=== PATIENT | female | born 1965 | race Caucasian/White ===

== ENCOUNTER → 2017-06-24 15:06 | Outpatient (CLI) | payer OTHER, SELFPAY ==
--- NOTE | 2017-06-24 15:15 | CT_ITS ---
STUDY: CT ABDOMEN AND PELVIS WITH CONTRAST REASON FOR EXAM: Female, 51 years old. LOW ABD PAIN WEIGHT LOSS RADIATION DOSAGE (If Supplied By Facility): CTDIvol = ( 12.18 ) mGy, DLP = ( 763.78 ) mGycm TECHNIQUE: Transaxial images were obtained from the dome of the diaphragm to the symphysis pubis with oral contrast. 100CC ml of Isovue 250 contrast was administered. Sagittal and coronal images were reconstructed. Individualized dose optimization techniques were used for this CT. COMPARISON: None. FINDINGS: The visualized lung bases are unremarkable. The visualized portions of the heart are within normal limits. 4 mm hypodensity in the right lobe of the liver. This is too small to characterize. The gallbladder is contracted. Normal spleen. Normal pancreas. Mild thickening of the left adrenal gland. Normal right kidney. Normal left kidney. Normal visualized stomach. Normal small intestine. Stool throughout the colon. The appendix is visualized and appears normal. Normal abdominal aorta. Normal inferior vena cava. Normal retroperitoneum. Normal urinary bladder. The uterus is lobulated in contour. There are multiple partially calcified masses in the uterus. This is consistent for a fibroid/ myomatous uterus. Large amount of stool in the rectal vault can suggest constipation. Normal abdominal wall. There is endplate spondylosis of the vertebral body. CT/Abdomen/Pelvis WITH Contrast IMPRESSION: Constipation. Electronically Signed: Gustabo Milton MD at 23:54 EST , Service support ,
== END ==
PROVIDERS: Family Provider Family Medicine; PCP Family Medicine; Visit Provider Internal Medicine Gastroenterology
DX: R10.9 Unspecified abdominal pain (principal); R63.4 Abnormal weight loss
CPT/HCPCS: 74177; Q9967

== ENCOUNTER → 2020-06-20 08:36 | Outpatient (CLI) | payer OTHER, SELFPAY ==
[2020-06-20 11:36] LABS: Absolute Lymphocyte Count 1.89 X10^3/uL (0.83-4.51); Absolute Neutrophil Count 4.7 X10^3/uL (2.0-7.7); Basophil# 0.07 X10^3/uL; Basophil% 0.9 % (0-1); Eosinophil# 0.32 X10^3/uL; Eosinophils% 4.3 % (0-5); Hematocrit 46.7 % (37-47); Hemoglobin 14.4 g/dL (12.0-15.0); Lymphocyte # 1.89 X10^3/ul (4.0); Lymphocyte % 25.4 % (19-41); Mean Corp Hgb Conc 30.8 g/dL (32-36); Mean Corpuscular Volume 94.2 fL (81-99); Monocyte# 0.46 X10^3/uL; Monocyte% 6.2 % (0-10); NRBC Flagged by Analyzer 0 % (0-5); Neutrophil # 4.68 X10^3/uL (2.7-7.7); Neutrophil % 62.8 % (47-70); Platelet Count 338 K/mm3 (150-450); RBC Distribution Width CV 12.8 % (11.6-14.6); RBC Distribution Width SD 44.6 fl (35.1-43.9); Red Blood Count 4.96 M/mm3 (4.2-5.4); White Blood Count 7.5 K/mm3 (4.4-11.0)
[2020-06-20 12:03] LABS: ALB/GLOB Ratio 0.8 RATIO (0.9-2.4); AST(SGOT) 27 U/L (15-37); Alanine Aminotransfer ALT/SGPT 35 U/L (13-56); Albumin, Serum 3.5 g/dL (3.2-5.0); Alkaline Phosphatase 75 U/L (45-117); Anion Gap 5 (5-15); BUN 11 mg/dL (7-18); BUN/Creat Ratio 13.7 RATIO (10-20); Calcium,Total 9.2 mg/dL (8.5-10.1); Chloride 104 mmol/L (98-107); Cholesterol 212 mg/dL (200); EST Glomerular Filtration Rate 78 mL/min (>60); Est Glom Filt Rate - Afr Amer 95 mL/min (>60); Globulin 4.2 g/dL (2.2-4.2); Glucose 99 mg/dL (74-106); High Density Lipoprotein 39 mg/dL; Potassium 4.2 mmol/L (3.5-5.1); Protein, Total 7.7 g/dL (6.4-8.2); Sodium Level 139 mmol/L (136-145); Triglycerides 78 mg/dL; Very Low Density Lipoprotein 16 mg/dL (5-40)
== END ==
PROVIDERS: PCP Family Medicine; Visit Provider Family Medicine
DX: Z00.00 Encounter for general adult medical examination without abnormal findings (principal); F17.200 Nicotine dependence, unspecified, uncomplicated
CPT/HCPCS: 36415; 80053; 80061; 85025

== ENCOUNTER → 2020-06-21 14:00 | Outpatient (CLI) | payer OTHER, SELFPAY ==
--- NOTE | 2020-06-21 14:02 | ART_ITS ---
Reason For Study: Claudication Procedure A bilateral lower extremity continuous wave Doppler with analog waveform analysis and ankle brachial indexes. Left Segmental Pressures Left brachial= 138mmHg. Left posterior tibial artery = 116mmHg. Left dorsalis pedis artery = 111mmHg. Left digit = 82 mmHg. The left dorsalis pedis waveforms are biphasic. The left posterior tibial artery waveforms are biphasic. Right Segmental Pressures Right brachial= 164mmHg. Right posterior tibial artery = 69mmHg. Right dorsalis pedis artery = 60mmHg. Right digit = 49 mmHg. The right dorsalis pedis waveforms are monophasic. The right posterior tibial artery waveforms are monophasic. Indices The right ankle brachial index by the dorsalis pedis is 0.37. The right ankle brachial index by the posterior tibial artery is 0.42. The right digital-brachial index is 0.30. The left ankle brachial index by the dorsalis pedis is 0.68. The left ankle brachial index by the posterior tibial artery is 0.71. The left digital-brachial index is 0.50. Brachial pressures taken twice. Interpretation Summary Severe arterial occlusive disease right lower extremity with abnormal ankle-brachial indices. Abnormal right dorsalis pedis and posterior tibialis monophasic Doppler waveform Abnormal right digital brachial indices Moderately severe left lower extremity arterial occlusive disease with diminished ankle-brachial indices and abnormal digital brachial indices Biphasic left posterior tibial and dorsalis pedis Doppler waveforms Ordering Physician: Sarah South Referring Physician: Sarah South Performed By: Mary Anne Chris RVT
== END ==
PROVIDERS: PCP Family Medicine; Referring Provider Family Medicine; Visit Provider Family Medicine
DX: I73.9 Peripheral vascular disease, unspecified (principal); R20.0 Anesthesia of skin; F17.200 Nicotine dependence, unspecified, uncomplicated
CPT/HCPCS: 93922

== ENCOUNTER 2021-05-19 21:12 | Emergency (ER) | payer OTHER, SELFPAY ==
[2021-05-19 21:13] VITALS: RESP 16; TEMP 35.9; BMI 33.3
[2021-05-19 21:22] VITALS: BP 195/89; PULSE 74; RESP 15; TEMP 36.5; O2SAT 98
[2021-05-19 21:32] VITALS: BP 169/74
--- NOTE | 2021-05-19 21:45 | CT_ITS ---
STUDY: CT ABDOMEN AND PELVIS WITH CONTRAST REASON FOR EXAM: Female, 55 years old. Pain RADIATION DOSAGE (If Supplied By Facility): CTDIvol = ( 12.21 ) mGy, DLP = ( 1129.76 ) mGycm TECHNIQUE: Transaxial images were obtained from the dome of the diaphragm to the symphysis pubis without oral contrast. IV 100mL Isovue-370 was administered. Sagittal and coronal images were reconstructed. Individualized dose optimization techniques were used for this CT. COMPARISON: None. FINDINGS: The visualized lung bases are unremarkable. The visualized portions of the heart are within normal limits. Small liver cysts. Otherwise unremarkable liver. Normal gallbladder and extrahepatic biliary system. Normal spleen. There is diffuse enlargement of the pancreas with ila-pancreatic edema suggesting acute pancreatitis. Normal bilateral adrenal glands. Normal right kidney. Normal left kidney. Normal visualized stomach. Normal small intestine. There are multiple colonic diverticula consistent with diverticulosis. The appendix is visualized and appears normal. Normal abdominal aorta. Normal inferior vena cava. Normal retroperitoneum. Normal urinary bladder. There is atrophy of the uterus. Normal abdominal wall. Normal osseous structures. CT/Abdomen/Pelvis W IV Cont ONLY IMPRESSION: Normal enhanced CT of the abdomen and pelvis. Electronically Signed: Micah Queen DO at 22:47 EST Tel , Service support ,
--- NOTE | 2021-05-19 21:45 | US_ITS ---
STUDY: ABDOMINAL ULTRASOUND - RIGHT UPPER QUADRANT REASON FOR VISIT: Female, 55 years old PAIN TECHNIQUE: Ultrasound evaluation of the right upper quadrant was performed with real-time and static cee-scale imaging. TECHNICAL QUALITY: Limited. Examination limited by bowel gas. COMPARISON: None. FINDINGS: Liver: The liver measures 13.3 cm. There is increased echogenicity consistent with fatty infiltration. The bile ducts are within normal limits. There is hepatic color flow. The direction of portal flow is hepatopetal. There is no demonstrated mass lesion. Small hypoechoic and nonvascular liver cysts. Gallbladder: Normal distended gallbladder. The gallbladder wall measures 2.5 mm. There is a negative sonographic Fernando''s sign. There is no pericholecystic fluid. There are multiple echogenic structures within the gallbladder, consistent with multiple gallstones. Common Bile Duct (C.B.D.): The common bile duct measures 5.4 mm. Pancreas: Limited evaluation due to overlying bowel gas Right Kidney: Normal size of the right kidney. The right kidney measures 11.5 cm. Normal renal cortex. The right cortex measures 1.2 cm. Cortical cyst measuring 9 x 9 x 8 mm There is no right hydronephrosis. US/Gallbladder IMPRESSION: Multiple gallstones without evidence of acute cholecystitis. Echogenic liver with small cysts. Right renal cyst is noted. Nonvisualized pancreas. Electronically Signed: Micah Queen DO at 23:56 EST Tel , Service support ,
--- NOTE | 2021-05-19 21:46 | ED.VIS.GI ---
HPI <Chano Crawford MD - Last Filed: 05/19/21 23:32> HPI - GI History of Present Illness Chief Complaint: Abd Pain Narrative Narrative: Patient with past medical history of DVT presents with epigastric to right upper quadrant abdominal pain, radiating down to her right lower quadrant. She states her symptoms began 45 minutes ago after eating really rich food. She states that she had pancreatitis 3 to 4 years ago, but they never found the cause why. She denies drinking alcohol. She describes sharp stabbing pain in the epigastrium to right upper quadrant. She denies any dysuria or hematuria. No problems with bowel movements. No exacerbating or alleviating factors to her abdominal pain. PFSH <Chano Crawford MD - Last Filed: 05/19/21 23:32> PFS Medical History Pancreatitis, acute Home Medications cilostazol 50 mg PO BID 05/19/21 [History Last Taken Unknown] clopidogrel [Plavix] 75 mg PO DAILY 05/19/21 [History Last Taken Unknown] Allergy/AdvReac Type Severity Reaction Status Date / Time Penicillins Allergy Swelling Verified 05/19/21 21:17 Social History Smoking Status: Smoker, status unknown tobacco type: cigarettes ROS <Chano Crawford MD - Last Filed: 05/19/21 23:32> ROS ED ROS Narrative Constitutional: No fever, no chills. HEENT: No sore throat. No neck pain. No loss of vision. No rhinorrhea. Cardiovascular: No chest pain. No palpitations. No pedal edema. Respiratory: No cough, no shortness of breath. Abdominal: Epigastric, right upper quadrant, and right lower quadrant abdominal pain. Positive nausea. No vomiting. Genitourinary: No dysuria. No hematuria. Musculoskeletal: No myalgias. No arthralgias. Neurologic: No headaches. No dizziness. No lightheadedness. Skin: No rash. No change in color. Psychiatric: No depression. No anxiety. EXAM <Chano Crawford MD - Last Filed: 05/19/21 23:32> Physical Exam Narrative Exam Narrative: Afebrile. Vital signs noted. HEENT: Normocephalic. Atraumatic. PERRL, EOMI. Neck soft and supple. No point tenderness or step off. Cardiovascular: Regular rate and rhythm. No murmurs, rubs, or gallops appreciated. Respiratory: No tachypnea. Lungs clear to auscultation bilaterally. Gastrointestinal: Abdomen soft, with tenderness to palpation in right upper quadrant, epigastrium, and right lower quadrant, with normoactive bowel sounds. No rebound or guarding, but questionable Fernando sign. Neurological: Awake. Alert. Nonfocal, nonlateralizing. Skin: No rash. Normal color. No pallor. Musculoskeletal: No pedal edema. Full range of motion extremities. Const Vital Signs: 05/19/21 21:13 05/19/21 21:22 05/19/21 21:32 Temperature 96.7 F L 97.7 F L Temperature Source Temporal Temporal Pulse Rate 74 Respiratory Rate 16 15 Blood Pressure 195/89 H 169/74 H Blood Pressure Mean 124 105 Pulse Ox 98 Oxygen Delivery Method Room Air Room Air Oxygen Flow Rate (L/min) 05/19/21 22:47 05/19/21 22:48 Temperature Temperature Source Pulse Rate Respiratory Rate Blood Pressure Blood Pressure Mean Pulse Ox 87 97 Oxygen Delivery Method Room Air Nasal Cannula Oxygen Flow Rate (L/min) 1 <Dr. Parish Sousa MD - Last Filed: 05/20/21 00:05> Physical Exam Const Vital Signs: 05/19/21 21:13 05/19/21 21:22 05/19/21 21:32 Temperature 96.7 F L 97.7 F L Temperature Source Temporal Temporal Pulse Rate 74 Respiratory Rate 16 15 Blood Pressure 195/89 H 169/74 H Blood Pressure Mean 124 105 Pulse Ox 98 Oxygen Delivery Method Room Air Room Air Oxygen Flow Rate (L/min) 05/19/21 22:47 05/19/21 22:48 Temperature Temperature Source Pulse Rate Respiratory Rate Blood Pressure Blood Pressure Mean Pulse Ox 87 97 Oxygen Delivery Method Room Air Nasal Cannula Oxygen Flow Rate (L/min) 1 MDM <Chano Crawford MD - Last Filed: 05/19/21 23:32> MDM MDM Narrative Medical decision making narrative: Comprehensive work-up was pursued. She was administered morphine and Zofran along with a bolus of normal saline intravenously. While she has pain in the right upper quadrant and epigastrium I am concerned about gallstones, but given her pain in the right lower quadrant, I am also concerned about an acute appendicitis. Baseline laboratory studies were obtained including CBC, CMP, and lipase. I will start with CT imaging of the abdomen and pelvis with IV contrast to rule out appendicitis, but additionally I do feel that a right upper quadrant ultrasound is warranted given her tenderness and her pain after eating. Her CBC is grossly unremarkable, normal white count of 8.3, hemoglobin normal at 14.0. Platelet count also normal. Her lipase is low in the 40s. Urinalysis shows no evidence of infection with 0-5 WBCs. CMP is grossly unremarkable except AST slightly elevated at 58. Upon repeat examination, she feels improved. Her abdomen remains soft. Her CT of the abdomen and pelvis shows no acute process. At this point in time, her ultrasound results are currently pending. She will be signed out to the oncoming physician. Should her ultrasound be normal, she was told to start a clear liquid diet and advance as tolerated to a no fat/low fat diet. She will follow up with her primary care physician. She and her were told that she may need an outpatient HIDA scan. I feel if she had a negative ultrasound, that she can be discharged safely home with follow-up. Her blood pressure has improved to 146 systolic. I think that it was a secondary pain reaction. Her final disposition is pending her ultrasound results. She is in stable condition. Lab Data Attestation: I reviewed the patient's lab results. Labs: Laboratory Results - last 24 hr 05/19/21 05/19/21 05/19/21 21:20 21:50 21:50 WBC 8.3 RBC 4.83 Hgb 14.0 Hct 44.2 MCV 91.5 MCH 29.0 MCHC 31.7 L RDW Std Deviation 45.5 H RDW Coeff of Aj 13.5 Plt Count 306 MPV 9.8 Immature Gran % (Auto) 0.600 Neut % (Auto) 58.0 Lymph % (Auto) 28.8 [place] % (Auto) 8.6 Eos % (Auto) 3.2 Baso % (Auto) 0.8 Absolute Neuts (auto) 4.8 Absolute Lymphs (auto) 2.40 Nucleated RBC % 0 Sodium Potassium Chloride Carbon Dioxide Anion Gap BUN Creatinine Estim Creat Clear Calc Est GFR (MDRD) Af Amer Est GFR (MDRD) Non-Af BUN/Creatinine Ratio Glucose Calcium Total Bilirubin AST ALT Alkaline Phosphatase Total Protein Albumin Globulin Albumin/Globulin Ratio Lipase Cancelled Urine Color Yellow Urine Clarity Clear Urine pH 8.0 Ur Specific [place] 1.015 Urine Protein Negative Urine Glucose (UA) Normal Urine Ketones Negative Urine Occult Blood 10 H Urine Nitrite Negative Urine Bilirubin Negative Urine Urobilinogen Normal Ur Leukocyte Esterase Negative Urine RBC 0-5 SEEN Urine WBC 0-5 SEEN Ur Squamous Epith Cells 5-10 SEEN Urine Bacteria 0 SEEN Urine Mucus 0 SEEN 05/19/21 05/19/21 22:30 22:30 WBC RBC Hgb Hct MCV MCH MCHC RDW Std Deviation RDW Coeff of Aj Plt Count MPV Immature Gran % (Auto) Neut % (Auto) Lymph % (Auto) [place] % (Auto) Eos % (Auto) Baso % (Auto) Absolute Neuts (auto) Absolute Lymphs (auto) Nucleated RBC % Sodium 139 Potassium 4.0 Chloride 105 Carbon Dioxide 29.0 Anion Gap 5 BUN 13 Creatinine 0.84 Estim Creat Clear Calc 66.49 Est GFR (MDRD) Af Amer 90 Est GFR (MDRD) Non-Af 75 BUN/Creatinine Ratio 15.6 Glucose 102 Calcium 9.0 Total Bilirubin 0.20 AST 58 H ALT 48 Alkaline Phosphatase 72 Total Protein 6.7 Albumin 3.0 L Globulin 3.7 Albumin/Globulin Ratio 0.8 L Lipase 48 L Urine Color Urine Clarity Urine pH Ur Specific [place] Urine Protein Urine Glucose (UA) Urine Ketones Urine Occult Blood Urine Nitrite Urine Bilirubin Urine Urobilinogen Ur Leukocyte Esterase Urine RBC Urine WBC Ur Squamous Epith Cells Urine Bacteria Urine Mucus Radiography Diagnostic Testing: Clinical Impression(s) from Imaging Studies Abdomen/Pelvis CT 05/19/21 21:45 IMPRESSION: Normal enhanced CT of the abdomen and pelvis. Electronically Signed: Micah Queen DO at 22:47 EST Tel , Service support , ADDENDUM: 05/19/21 [id number] Gallbladder Ultrasound 05/19/21 21:45 IMPRESSION: Multiple gallstones without evidence of acute cholecystitis. Echogenic liver with small cysts. Right renal cyst is noted. Nonvisualized pancreas. Electronically Signed: Micah Queen DO at 23:56 EST Tel , Service support , <Dr. Parish Sousa MD - Last Filed: 05/20/21 00:05> [facility] MDM Narrative Medical decision making narrative: Patient checked out to me, ultrasound returned showing multiple gallstones without radiographic signs of cholecystitis. Patient's pain is resolved, her abdomen is benign, her labs are within normal limits, and she does not have acute cholecystitis right now. Discussed foods to avoid, I would advise that she follow-up with surgery given that we see gallstones which are likely causing her symptoms. She is comfortable with this overall plan given referral information and appropriate discharge papers. Lab Data Labs: Laboratory Results - last 24 hr 05/19/21 05/19/21 05/19/21 21:20 21:50 21:50 WBC 8.3 RBC 4.83 Hgb 14.0 Hct 44.2 MCV 91.5 MCH 29.0 MCHC 31.7 L RDW Std Deviation 45.5 H RDW Coeff of Aj 13.5 Plt Count 306 MPV 9.8 Immature Gran % (Auto) 0.600 Neut % (Auto) 58.0 Lymph % (Auto) 28.8 [place] % (Auto) 8.6 Eos % (Auto) 3.2 Baso % (Auto) 0.8 Absolute Neuts (auto) 4.8 Absolute Lymphs (auto) 2.40 Nucleated RBC % 0 Sodium Potassium Chloride Carbon Dioxide Anion Gap BUN Creatinine Estim Creat Clear Calc Est GFR (MDRD) Af Amer Est GFR (MDRD) Non-Af BUN/Creatinine Ratio Glucose Calcium Total Bilirubin AST ALT Alkaline Phosphatase Total Protein Albumin Globulin Albumin/Globulin Ratio Lipase Cancelled Urine Color Yellow Urine Clarity Clear Urine pH 8.0 Ur Specific [place] 1.015 Urine Protein Negative Urine Glucose (UA) Normal Urine Ketones Negative Urine Occult Blood 10 H Urine Nitrite Negative Urine Bilirubin Negative Urine Urobilinogen Normal Ur Leukocyte Esterase Negative Urine RBC 0-5 SEEN Urine WBC 0-5 SEEN Ur Squamous Epith Cells 5-10 SEEN Urine Bacteria 0 SEEN Urine Mucus 0 SEEN 05/19/21 05/19/21 22:30 22:30 WBC RBC Hgb Hct MCV MCH MCHC RDW Std Deviation RDW Coeff of Aj Plt Count MPV Immature Gran % (Auto) Neut % (Auto) Lymph % (Auto) [place] % (Auto) Eos % (Auto) Baso % (Auto) Absolute Neuts (auto) Absolute Lymphs (auto) Nucleated RBC % Sodium 139 Potassium 4.0 Chloride 105 Carbon Dioxide 29.0 Anion Gap 5 BUN 13 Creatinine 0.84 Estim Creat Clear Calc 66.49 Est GFR (MDRD) Af Amer 90 Est GFR (MDRD) Non-Af 75 BUN/Creatinine Ratio 15.6 Glucose 102 Calcium 9.0 Total Bilirubin 0.20 AST 58 H ALT 48 Alkaline Phosphatase 72 Total Protein 6.7 Albumin 3.0 L Globulin 3.7 Albumin/Globulin Ratio 0.8 L Lipase 48 L Urine Color Urine Clarity Urine pH Ur Specific [place] Urine Protein Urine Glucose (UA) Urine Ketones Urine Occult Blood Urine Nitrite Urine Bilirubin Urine Urobilinogen Ur Leukocyte Esterase Urine RBC Urine WBC Ur Squamous Epith Cells Urine Bacteria Urine Mucus Radiography Diagnostic Testing: Clinical Impression(s) from Imaging Studies Abdomen/Pelvis CT 05/19/21 21:45 IMPRESSION: Normal enhanced CT of the abdomen and pelvis. Electronically Signed: Micah Queen DO at 22:47 EST Tel , Service support , ADDENDUM: 05/19/21 [id number] Gallbladder Ultrasound 05/19/21 21:45 IMPRESSION: Multiple gallstones without evidence of acute cholecystitis. Echogenic liver with small cysts. Right renal cyst is noted. Nonvisualized pancreas. Electronically Signed: Micah Queen DO at 23:56 EST Tel , Service support , Discharge Plan Triage Chief Complaint: Abd Pain ED Provider: Chano Crawford Dx/Rx/DC Orders Clinical Impression: Biliary colic, Cholelithiasis Instructions: ED Gallstones with Biliary Colic Prescriptions: No Action cilostazol 50 mg Tablet 50 mg PO BID RF: 0 clopidogrel [Plavix] 75 mg Tablet 75 mg PO DAILY RF: 0 Primary Care Provider: Sarah South Referrals: Jose Luis Adler MD [STAFF PHYSICIAN] - (Call tomorrow for appointment to be seen as soon as an appointment is available) Sarah South MD [Primary Care Provider] - 05/20/21 Disposition Disposition: Home, Self Care
[2021-05-19] MEDS: 0.9% Normal Saline 1,000 ML 1000 ML IV (21:50)
[2021-05-19] MEDS: Ondansetron 4 MG/2 ML Vial IV (21:55)
[2021-05-19] MEDS: Morphine 4 MG/ML Syringe IV (21:55)
[2021-05-19 21:56] LABS: Absolute Neutrophil Count 4.8 X10^3/uL (2.0-7.7); Basophil# 0.07 X10^3/uL; Basophil% 0.8 % (0-1); Eosinophil# 0.27 X10^3/uL; Eosinophils% 3.2 % (0-5); Hematocrit 44.2 % (37-47); Lymphocyte % 28.8 % (19-41); Mean Corp Hgb Conc 31.7 g/dL (32-36); Mean Corpuscular Volume 91.5 fL (81-99); Mean Platelet Vol. 9.8 fl (6.2-12.0); Monocyte# 0.72 X10^3/uL; Monocyte% 8.6 % (0-10); NRBC Flagged by Analyzer 0 % (0-5); Neutrophil # 4.83 X10^3/uL (2.7-7.7); Platelet Count 306 K/mm3 (150-450); RBC Distribution Width CV 13.5 % (11.6-14.6); RBC Distribution Width SD 45.5 fl (35.1-43.9); Red Blood Count 4.83 M/mm3 (4.2-5.4); White Blood Count 8.3 K/mm3 (4.4-11.0)
[2021-05-19 22:00] LABS: Bacteria 0 SEEN /hpf (None Seen); Mucous, Urine 0 SEEN /hpf (<or=2+)
[2021-05-19 22:01] LABS: Color, Urine Yellow (Yellow); Glucose, Dipstick Normal (Normal); Ketone-Dipstick Negative (Negative); Leukocyte Esterase-Dipstick Negative /ul (Negative); Nitrite-Dipstick Negative (Negative); Occult Blood-Urine 10 /ul (Negative); Protein-Dipstick Negative (Negative); Specific Gravity, Urine 1.015 (1.002-1.030); Urine Bilirubin Dipstick Negative (Negative); Urine Clarity Clear (Clear); Urine Urobilinogen Normal (Normal)
[2021-05-19 22:11] LABS: Red Blood Cells-Urine 0-5 SEEN /hpf (0-5); Squamous Epithelial Cells - UA 5-10 SEEN /hpf (5-10); White Blood Cells 0-5 SEEN /hpf (0-5)
[2021-05-19 22:47] VITALS: O2SAT 87
[2021-05-19 22:48] VITALS: O2SAT 97
[2021-05-19 22:53] LABS: Lipase 48 U/L (73-393)
[2021-05-19 23:07] LABS: ALB/GLOB Ratio 0.8 RATIO (0.9-2.4); AST(SGOT) 58 U/L (15-37); Alanine Aminotransfer ALT/SGPT 48 U/L (13-56); Alkaline Phosphatase 72 U/L (45-117); Anion Gap 5 (5-15); BUN 13 mg/dL (7-18); BUN/Creat Ratio 15.6 RATIO (10-20); Chloride 105 mmol/L (98-107); Creatinine, Serum 0.84 mg/dL (0.55-1.02); EST Glomerular Filtration Rate 75 mL/min (>60); Est Glom Filt Rate - Afr Amer 90 mL/min (>60); Estimated Creatinine Clearance 66.49 ml/min; Globulin 3.7 g/dL (2.2-4.2); Glucose 102 mg/dL (74-106); Protein, Total 6.7 g/dL (6.4-8.2); Sodium Level 139 mmol/L (136-145)
[2021-05-20 00:02] VITALS: BP 125/62; PULSE 75; RESP 17; O2SAT 95
== END 2021-05-20 00:07 | disposition home or self-care (01) ==
PROVIDERS: Emergency Provider Emergency Medicine; PCP Family Medicine
DX: K80.70 Calculus of gallbladder and bile duct without cholecystitis without obstruction (principal); F17.210 Nicotine dependence, cigarettes, uncomplicated; Z79.02 Long term (current) use of antithrombotics/antiplatelets; Z79.899 Other long term (current) drug therapy; Z87.19 Personal history of other diseases of the digestive system; Z86.718 Personal history of other venous thrombosis and embolism
CPT/HCPCS: 74177; 76705; 80053; 81001; 83690; 85025; 96361; 96374; 96375; 99285; J7030; Q9967; A4216; J2405

== ENCOUNTER 2021-05-31 08:01 | Outpatient (CLI) | payer OTHER, SELFPAY ==
--- NOTE | 2021-05-31 08:00 | ART_ITS ---
Reason For Study: Atherosclerosis Procedure A bilateral lower extremity continuous wave Doppler with analog waveform analysis and ankle brachial indexes. Left Segmental Pressures Left brachial= 137mmHg. Left posterior tibial artery = 132mmHg. Left dorsalis pedis artery = 135mmHg. The left dorsalis pedis waveforms are biphasic. The left posterior tibial artery waveforms are biphasic. Right Segmental Pressures Right brachial= 139mmHg. Right posterior tibial artery = 79mmHg. Right dorsalis pedis artery = 74mmHg. The right dorsalis pedis waveforms are monophasic. The right posterior tibial artery waveforms are monophasic. Indices The right ankle brachial index by the dorsalis pedis is .53. The right ankle brachial index by the posterior tibial artery is .57. The left ankle brachial index by the posterior tibial artery is .95. The left ankle brachial index by the dorsalis pedis is .97. VL/Ankle Brachial Index Interpretation Summary Right lower extremity with moderate occlusive disease at rest with an STEFANO 0.57 and monophasic flow noted. Left lower extremity with biphasic flow noted and an STEFANO of 0.97. Ordering Physician: MD Fernando Coulter Referring Physician: Fernando Coulter Performed By: Aleah Jordan RDCS, RVT
--- NOTE | 2021-05-31 08:06 | AAVD_ITS ---
Reason For Study: ATHEROSCLEROSIS Aorta Measurements Aorta Doppler Measurements Proximal aorta measures1.49 X 1.49cm. in cross- Peak systolic flow velocities within the proximal sectional axis. aorta measure 120.5 cm/sec. Proximal aorta measures1.48cm. in longitudinal Peak systolic flow velocities within the mid aorta axis. measure 102.9 cm/sec. Mid aorta measures1.44 X 1.43cm. in cross- Peak systolic flow velocities within the distal sectional axis. aorta measure 111.7 cm/sec. Mid aorta measures1.44cm. in longitudinal axis. Distal aorta measures1.57 X 1.55cm. in cross- sectional axis. Distal aorta measures1.56cm. in longitudinal axis. Left Iliac Artery Left iliac artery measures 1.15 X 1.15 cm. in the longitudinal axis. Left iliac artery measures 1.14 cm. in the cross-sectional axis. Peak systolic velocity in the left iliac artery measures 151.7 cm/sec. Right Iliac Artery Right iliac artery measures 1.07 X 1.07 cm. in the longitudinal axis. Right iliac artery measures 1.06 cm. in the cross-sectional axis. Peak systolic velocity in the right iliac artery measures 133.6 cm/sec. Procedure Aorta IVC Iliac vasculature or bypass grafts [id number]. Exam performed in department. VL/Abd Aortic/IVC Duplex scan Interpretation Summary No evidence of aortic iliac aneurysm or stenosis. Ordering Physician: Fernando Coulter Referring Physician: BATSHEVA ODEN Performed By: Aleah Jordan, NALLELY, RVT
== END 2021-05-31 23:59 | disposition short-term general hospital (02) ==
LOC: CVS 08:02
PROVIDERS: PCP Family Medicine; Referring Provider Surgery Vascular Surgery; Visit Provider Surgery Vascular Surgery
DX: I70.213 Atherosclerosis of native arteries of extremities with intermittent claudication, bilateral legs (principal); I77.1 Stricture of artery; Z48.812 Encounter for surgical aftercare following surgery on the circulatory system
CPT/HCPCS: 93922; 93978

== ENCOUNTER 2021-07-03 08:19 | Outpatient (CLI) | payer OTHER, SELFPAY ==
--- NOTE | 2021-07-03 08:25 | RAD_ITS ---
STUDY: X-RAY CHEST REASON FOR EXAM: Female, 55 years old. covid TECHNIQUE: PA and lateral views of the chest. COMPARISON: Comparison is made with prior study 12/25/2015. FINDINGS: There is elevation of the right hemidiaphragm. Stable scattered calcified granulomas. Hyperinflation. No acute abnormality is seen. There is no demonstrated pleural abnormality. Normal size heart. Normal mediastinum and bárbara. Normal visualized pulmonary arteries. There is atherosclerotic tortuosity of the aortic arch and descending thoracic aorta. There are diffuse degenerative changes of the visualized thoracic spine. Normal visualized ribs, clavicles, and shoulders. There is no demonstrated abnormality of the visualized soft tissue structures of the upper abdomen. RAD/Chest PA and Lateral IMPRESSION: No acute abnormality is seen. Electronically Signed: Mark Bhat MD at 9:11 EST ,
== END 2021-07-03 23:59 | disposition home or self-care (01) ==
LOC: RAD 08:20
PROVIDERS: PCP Family Medicine; Referring Provider Surgery; Visit Provider Surgery
DX: U07.1 COVID-19 (principal)
CPT/HCPCS: 71046

== ENCOUNTER 2021-07-05 10:32 | Day surgery (SDC) | payer OTHER, SELFPAY ==
--- NOTE | 2021-06-13 09:20 | EKG12_ITS ---
Test Reason : PREOP Blood Pressure : / mmHG Vent. Rate : 066 BPM Atrial Rate : 066 BPM P-R Int : 156 ms QRS Dur : 090 ms QT Int : 374 ms P-R-T Axes : 058 -39 049 degrees QTc Int : 392 ms Normal sinus rhythm Left axis deviation Consider Left ventricular hypertrophy Abnormal ECG Confirmed by JOHN CLEMENTS, ALYSSA ([id number]), medical transcription editor CORI MCHUGH ([id number]) on 06/14/2021 9:09:27 AM Referred By: Jose Luis Adler Confirmed By:ALYSSA LOPEZ MD
[2021-06-17 07:52] VITALS: BP 135/65; PULSE 71; RESP 20; TEMP 36.3; O2SAT 93; BMI 32.3
[2021-06-17] MEDS: Lactated Ringers 1,000 ML 15 ML IV (08:13)
--- NOTE | 2021-06-17 08:17 | PN_ITS ---
Progress Note Patient was here for surgery and had rapid Covid test this morning and tested positive for Covid. This is supported by the fact that her oxygen saturation was only 90% on arrival. I will cancel her surgery and plan to delay 2 to 3 weeks. Jose Luis Adler MD Pager: [facility] [address] [place] [address], [address] [place] [address] Office:
--- NOTE | 2021-06-17 08:17 | PCM.PN.BLA ---
Progress Note Patient was here for surgery and had rapid Covid test this morning and tested positive for Covid. This is supported by the fact that her oxygen saturation was only 90% on arrival. I will cancel her surgery and plan to delay 2 to 3 weeks. Jose Luis Adler MD Pager: [facility] [address] [place] [address], [address] [place] [address] Office:
--- NOTE | 2021-06-17 08:20 | SUR.PREOP ---
lab called with positive covid rapid test- dr ian jasso and informed- case cancelled he will talk with pt
[2021-07-05] VITALS (13 sets, daily range): BP systolic 103–188; BP diastolic 49–90; PULSE 71–98; RESP 14–18; TEMP 36.3–36.9; O2SAT 92–97; BMI 31.5
[2021-07-05] MEDS: Lactated Ringers 1,000 ML 15 ML IV (11:05)
--- NOTE | 2021-07-05 11:27 | HP.PCM_ITS ---
History and Physical Date of Admission: 07/05/21 Intake Vital Signs 05/22/21 14:24 Height 5 ft 5 in Weight: 199 lb BMI 33.1 BP 122/72 H Blood Pressure Location Rt brachial Position Sitting Respiration 16 Intake Visit Reasons: GALLSTONES Chief Complaint: gallstones Junior Network Administrator Required: No Is patient in pain?: No Allergies Penicillins Allergy (Verified 05/22/21 14:25) Swelling Medications cilostazol 50 mg PO BID 05/19/21 [History Confirmed 05/22/21] clopidogrel [Plavix] 75 mg PO DAILY 05/19/21 [History Confirmed 05/22/21] [facility] Medical History (Updated 05/22/21 @ 14:[address] Jose Luis Adler MD) Pancreatitis, acute PVD (peripheral vascular disease) Surgical History H/O tubal ligation Social History Smoking Status: Current every day smoker alcohol intake: current HPI HPI HPI: MICHELLE CHU, is a 55 F who presents to the office today for right upper quadrant pain. Patient was in the emergency room recently with right upper quadrant pain was found to have gallstones. There was no sign of acute cholecystitis. Patient reports yesterday she had a roll with butter on it and that caused right upper quadrant pain as well. Patient is not having any fevers or chills. The patient has not had any issues in the past like this before. Patient does report that she had pancreatitis about 6 years ago. ROS General General: Yes weight change and fatigue; No appetite, colon cancer, breast cancer or weakness HEENT HEENT: No difficulty swallowing, eye injury, eye surgery, swollen glands or hoarseness Endo Endocrine: No thyroid disease, diabetes mellitus, thyroid cancer, Hair loss, heat intolerance or cold intolerance Skin Skin: No rash or changing moles Breast Breast: No left breast lump, right breast lump, nipple discharge, breast pain, abnormal mammogram, abnormal US or breast enlargement Musc Musculoskeletal: No back problems, arthritis, rheumatoid arthritis, gout or joint pain Cardio Cardiovascular: No murmur, pacemaker, heart disease, atrial fibrillation, high blood pressure, heart attack, heart stent, palpitations, shortness of breat with exertion or chest pain Psych Psychiatric: No depression, anxiety or hearing voices Resp Respiratory: No shortness of breath, No sleep apnea, Yes cough, No COPD, No asthma, No emphysema and No wheezing Gastro Gastrointestinal: Yes abdominal pain, No nausea or vomiting, No diarrhea, No constipation, No blood in stool, Yes acid reflux, No hemorrhoids, No ulcers, Yes gallbladder problem and No black,tarry stools David Hematologic: Yes blood thinners, No blood disorders, No bleeding, No anemia and No blood clots Neuro Neurologic: No system reviewed and no additional complaints, except as documented, No as per HPI, No abnormal gait, No abnormal hearing, No abnormal movements, No abnormal speech, No behavioral changes, No burning sensations, No confusion, No convulsions, No disequilibrium, No dizziness, No localized weakness, No frequent falls, No headache(s), No lack of coordination, No loss of vision, No memory loss, No numbness, No other visual disturbances, No radicular pain, No restless legs, No sensory deficit, No syncope, No tingling, No tremor(s), No weakness and No other Exam Const General: cooperative Orientation: alert and oriented x3 HENMT Head: normal to inspection Neck Neck: normal visual inspection and full ROM Chest Chest palpation & inspection: normal inspection of the chest Resp Effort & Inspection: normal respiratory effort Auscultation: clear to auscultation bilaterally Cardio Rate: regular rate Rhythm: regular rhythm GI Inspection: non-distended Palpation: soft and nontender Skin General: no rashes or lesions noted Neuro General: patient alert and patient oriented x3 Extrem General: full ROM Psych Appearance: grossly normal Mental Status: mental status grossly normal Assessment and Plan Assessment and Plan (1) Biliary colic: Status: Acute (2) Cholelithiasis: Status: Acute Qualifiers: Cholelithiasis location: gallbladder Cholecystitis presence: without cholecystitis Biliary obstruction: without biliary obstruction Qualified Code(s): K80.20 - Calculus of gallbladder without cholecystitis without obstruction Plan - Dr. Jose Luis Adler MD: The patient has several gallstones within her gallbladder causing biliary colic. I recommend the patient has laparoscopic cholecystectomy however she has severe PVD and is on 2 blood thinners. Patient is meeting with her vascular surgeon next week to discuss further studies and possible interventions. I discussed laparoscopic cholecystectomy with her in detail. The patient will be happy to proceed when able. I would like the patient asked her vascular surgeon when she may be able to stop her blood thinners. If she is able to come off of her blood thinners for 5 days I will schedule her for laparoscopic cholecystectomy. Jose Luis Adler MD Pager: [facility] [address] [place] [address], [address] [place] [phone] Office: Patient has recovered from Covid. Plan to proceed with laparoscopic cholecystectomy today.
--- NOTE | 2021-07-05 11:45 | RAD_ITS ---
STUDY: INTRAOPERATIVE CHOLANGIOGRAM. REASON FOR EXAM: Female, 55 years old. RUQ pain -- LAP PARKER WITH IOC FLUOROSCOPY TIME (if supplied): ( 17 seconds ) minutes/seconds. A cine loop of 113 images was obtained. TECHNIQUE: An intraoperative cholangiogram was performed by the surgeon. Imaging was submitted. COMPARISON: None. FINDINGS: The intra and extrahepatic biliary ducts are unremarkable. No intraluminal filling defect is seen. There is free flow of contrast into the duodenum. RAD/Cholangiogram/ O R,Initial IMPRESSION: Unremarkable intraoperative cholangiogram. Electronically Signed: Mark Bhat MD at 10:03 [facility] ,
--- NOTE | 2021-07-05 12:10 | GALL_PTH ---
PATIENT: MICHELLE CHU LOC: [facility] U#:[id number] AGE/SX: 55/F ROOM: RE07/05/[address]: Dr. Jose Luis Adler MD : [id number] BED: DIS: 07/05/2021 SPEC #: [id number] RECD: 07/05/21 13:09 STATUS: GABRIELA WANG #: [id number] ROYER: 07/05/21 12:[address]: Jose Luis Adler DEPT: SURGICAL PATHOLOGY RECD BY: Maurilio Daniels ENTERED: 07/05/21 13:26 SP TYPE: JARRED ARAGON DR: Dr. Sarah South MD Tissues: Gallbladder, NOS Procedures: Surgery Specimen Level III HEADER OPERATION: Laparoscopic cholecystectomy with IOC PRE-OP DIAGNOSIS: Biliary colic, cholelithiasis TISSUE SUBMITTED: Gallbladder MICROSCOPIC DIAGNOSIS Gallbladder, cholecystectomy: Chronic cholecystitis and cholelithiasis. SJ:ruddy 07/08/2021 MICROSCOPIC DESCRIPTION Slides are reviewed. GROSS DESCRIPTION Received is one container labeled with the patient's name and designated gallbladder. The specimen consists of a gallbladder measuring 9.5 cm in length and up to 3.5 cm in diameter. The external surface is pink-jones, smooth and glistening for the most part. Focally it is granular, hemorrhagic and contains cautery artifact. The gallbladder contains green-yellow mucoid bile and multiple mulberry stones and stone fragments measuring in aggregate 5 x 4 x 1 cm and 0.1 to 1 cm in greatest dimension. The mucosa is bile-stained and without any mass lesions. The gallbladder wall measures up to 0.2 cm in thickness. Client Renewal Specialist sections from the gallbladder and the cystic duct are submitted in one cassette. / MARIAN:ruddy 07/05/2021 TC:3 CPT: 04898
[2021-07-05] MEDS: Bupivacaine Mpf 0.5% 30 ML VIAL (12:21)
--- NOTE | 2021-07-05 12:37 | PCM.OPRPT ---
Problems Associated Problem List Diagnoses (1) Biliary colic: (2) Cholelithiasis: Report of Operation Date of Procedure: 07/05/21 Pre-Operative Diagnosis: Cholelithiasis and biliary colic Post-Operative Diagnosis: Same Surgery/Procedure Performed:: Laparoscopic cholecystectomy with cholangiogram Specimen's removed: Gallbladder Description of Procedure: After obtaining informed consent patient was brought back to the operating room. General anesthesia was induced. The abdomen was prepped and draped in usual sterile fashion. A small midline incision was made superior to the umbilicus and deepened to the level of fascia. The fascia was elevated and incised. Next the peritoneum was elevated and incised in the same fashion. Finger sweep was performed and the Miguel trocar was placed into the abdomen. The balloon was inflated. The abdomen was inflated to 15 mmHg. Next a camera was introduced into the abdomen and the abdomen was inspected. Next under direct visualization three 5-mm ports were placed one subxiphoid and 2 subcostal. Next the gallbladder was elevated and retracted toward the right shoulder. The peritoneum was stripped from the gallbladder. The infundibulum was located and retracted laterally. Next the triangle of Calot was dissected and the cystic duct and cystic artery were identified. Cholangiograms were performed. The Dempsey clamp was used to clamp across the infundibulum and the catheter needle was inserted into the gallbladder. Under fluoroscopy contrast was instilled into the gallbladder and the common duct, cystic duct as well as proximal hepatic ducts were identified. There was good filling of the duodenum. There were no filling defects noted in the common bile duct. The clamp was removed as well as the needle and the infundibulum was grasped once more. Three hemolock clips were placed across the cystic duct. The cystic duct was then divided leaving 2 clips on the stump. The cystic artery was clipped and divided in the same fashion. The hook cautery was then used to take the gallbladder off of the gallbladder bed. Hemostasis was obtained. Gallbladder fossa was irrigated and no active bleeding or bile leakage was noted. Next the camera was introduced in the subxiphoid port. An Endopouch bag was placed through the umbilical port and the gallbladder was placed into it. The gallbladder was then removed through the umbilical incision. The camera was then reinserted through the umbilical port. The gallbladder fossa was inspected once more and noted to be hemostatic with no leaking bile. The abdomen was suctioned dry. The 5 mm ports were removed under direct visualization. The umbilical port was then removed and the air was removed from the abdomen. Next using an 0 Vicryl suture the umbilical fascia was closed in a [id number] fashion. The umbilical port site was irrigated local anesthetic was administered to all the incisions. All the incisions were closed with interrupted subcuticular 4-0 Monocryl sutures followed by Steri-Strips and dressings. The patient was awoken and taken to PACU in stable condition. Admit VTE Documentation VTE Mechan Device Prophylaxis: SCD's
--- NOTE | 2021-07-05 12:39 | EX.PCM.DISCH ---
Discharge Instructions Procedure Gallbladder Diet Discharge Diet: Light diet - advance as tolerated Activity Discharge Activity: May Not Drive (for 2-3 days or while taking narcotic pain medications.) and - (Do not drive, work heavy equipment or sign legal documents for 24 hours.) May shower in (days): 1 Lifting Restrictions: 20 lbs for 2 weeks Additional Activity Instructions:: Pain medication may cause nausea. You should typically eat light foods as you take your pain medications. Pain medication may also cause constipation. If this is a problem for you, please discuss with your doctor. Dressing / Incision Call your doctor if your incision/area has: Continuous Slow Oozing, Sudden Increased Bleeding, Increased Pain/ Swelling, Increased Redness and Foul Smelling Discharge Call your doctor if you observe: Fever of 101 or Higher Suture Line Care: Avoid Pulling/Pushing and Avoid Pinching/Bending Remove Dressing in: 2 days (Remove Steri-Strips in 7 to 10 days) Cleanse incision/area with: Soap & Water Additional Dressing/Incision Instructions:: Leave operative bandaids on for 2 days. When you remove dressing, remove Steri-Strips in 7 to 10 days. Resume Plavix and Pletal tomorrow Follow Up Care Please Follow Up With: Jose Luis Adler MD When: Please call to schedule 2 week follow up appointment. [phone] Test Results: Test results from this visit will be discussed in further detail at your follow-up appointment, if applicable. Discharge Plan Admission Attending Provider: Jose Luis Adler Primary Care Provider: Sarah South Discharge Orders/Prescriptions Prescriptions: New oxycodone-acetaminophen [Percocet] 5-325 mg tablet 1 tab PO Q4H PRN (Reason: pain) 5 Days Qty: 20 RF: 0 No Action cilostazol 50 mg Tablet 50 mg PO BID RF: 0 clopidogrel [Plavix] 75 mg Tablet 75 mg PO DAILY RF: 0 Pepcid Complete 10-800-165 mg Tablet,Chewable 1 tab PO QHS RF: 0 Other Ambulatory Orders: 12 Lead EKG (Routine) Timeframe: [id number] Location: None Selected Ordered By: Dr. Rajiv Sims Referrals / Follow Up: Sarah South MD [Primary Care Provider] - Disposition Disposition (needs filled in before D/C Order can be placed): Home, Self Care
== END 2021-07-05 23:59 | disposition home or self-care (01) ==
LOC: SDC 10:33 → AC 10:33
PROVIDERS: PCP Family Medicine; Referring Provider Surgery; Visit Provider Surgery
PROC: (CPT 47610; principal; 2021-07-05 11:50)
DX: K80.64 Calculus of gallbladder and bile duct with chronic cholecystitis without obstruction (principal); I73.9 Peripheral vascular disease, unspecified; K21.9 Gastro-esophageal reflux disease without esophagitis; F17.200 Nicotine dependence, unspecified, uncomplicated; Z79.02 Long term (current) use of antithrombotics/antiplatelets; Z79.899 Other long term (current) drug therapy; Z53.8 Procedure and treatment not carried out for other reasons
CPT/HCPCS: 47563 ×2; 00790; 74300; 76000; 87426; 88304; 93005; J7120; J0330; J2405

== ENCOUNTER 2021-07-18 17:00 | Emergency (ER) | payer OTHER, SELFPAY ==
[2021-07-18 17:01] VITALS: BP 216/96; PULSE 91; RESP 14; TEMP 36.8; O2SAT 98; BMI 31.5
--- NOTE | 2021-07-18 17:36 | EDS_ITS ---
HPI History of Present Illness Chief Complaint: Chest Pain Informant: patient Onset/Context/Timing Onset: Hours (1.5) Activity at onset: sudden and onset Timing: Intermittent (one episode) and Lasts (about an hour) Quality: Positive for Aching and Pressure Location: - (epigastric and RUQ, radiating up into substernal chest) Current Severity: Gone Maximum Severity: Severe Worsened By: Nothing Relieved By: Nothing Associated Symptoms: Positive for Diaphoresis, Lightheadedness and - (tingling both arms/hands); Negative for Nausea, Vomiting, Dyspnea, Cough, Fever and Palpitations Narrative Narrative: Patient states about 2 hours prior to the onset of pain, she had fast food hamburger for lunch, and then ate a small package of M&M candies just prior to the onset of terrible upper abdominal/lower chest discomfort. She states these were the exact same episodic symptoms she was having prior to having her cholecystectomy on 07/05/2021. She was diagnosed as having gallstones and biliary colic. She did have the chest discomfort occasionally when she was having those episodes, but she did not necessarily have the sweating and tingling in her hands that she did today. At this time the discomfort is gone and her symptoms are all resolved as well. When she initially arrived here to the hospital to the waiting room, her blood pressure was 216/96 and she was having the severe discomfort, but it has since resolved on its own and now her blood pressure is 142 during my exam. Patient states she is on clopidogrel for peripheral arterial disease in her legs. She does not take aspirin or any anticoagulants and has no history of DVT or PE. She denies any pleuritic symptoms today. [facility] Medical History (Updated 07/18/21 @ 21:[address] Parish Sousa MD) Acute cholecystitis Cholelithiasis COVID Gastric reflux History of edema History of pain when walking Pancreatitis, acute PVD (peripheral vascular disease) Smoker Wears partial dentures Home Medications cilostazol 50 mg PO BID 05/19/21 [History Last Taken Unknown] clopidogrel [Plavix] 75 mg PO DAILY 05/19/21 [History Last Taken 06/30/21] famotidine-Ca carb-mag hydrox [Pepcid Complete] 1 tab PO QHS 06/12/21 [History Last Taken Unknown] oxycodone-acetaminophen [Percocet] 1 tab PO Q4H PRN 5 Days #20 tab 07/05/21 [Rx Last Taken Unknown] pantoprazole 40 mg PO DAILY #30 tab 07/18/21 [Rx Last Taken Unknown] Allergy/AdvReac Type Severity Reaction Status Date / Time Penicillins Allergy Swelling Verified 07/18/21 17:04 Surgical History H/O tubal ligation History of laparoscopic cholecystectomy Hx of vascular surgery Social History Smoking Status: Current every day smoker tobacco type: cigarettes alcohol intake: current ROS ROS ED Constitutional Constitutional ED: Denies chills or fever(s) Eyes Eyes: Denies change in vision or diplopia ENT ENT ED: Denies rhinorrhea or sore throat Cardiovascular Cardiovascular: Reports as per HPI and chest pain; Denies dyspnea or palpitations Respiratory/Chest Respiratory/Chest: Denies cough or dyspnea Gastrointestinal Gastrointestinal: Reports as per HPI and abdominal pain; Denies diarrhea, nausea or vomiting Genitourinary Genitourinary ED: Denies dysuria or hematuria Musculoskeletal Musculoskeletal: Denies back pain or neck pain Integumentary Denies abscess or rash Neurologic Neurologic: Reports as per HPI and paresthesias; Denies headache(s) or weakness Psychiatric Psychiatric: Denies anxiety or suicidal thoughts EXAM Physical Exam Const Vital Signs: 07/18/21 17:00 07/18/21 17:01 07/18/21 17:36 Temperature 98.3 F Temperature Source Temporal Pulse Rate 91 Respiratory Rate 14 Respiratory Effort Normal Non-Labored Blood Pressure 216/96 H Blood Pressure Mean 136 Pulse Ox 98 Oxygen Delivery Method Room Air Room Air 07/18/21 18:08 07/18/21 19:04 07/18/21 20:27 Temperature Temperature Source Pulse Rate 88 83 85 Respiratory Rate 30 H 19 H 22 H Respiratory Effort Blood Pressure 131/69 H 143/64 H 159/67 H Blood Pressure Mean 89 90 97 Pulse Ox 95 99 98 Oxygen Delivery Method Room Air Room Air Room Air Positive well nourished and well developed General Appearance ED: well developed and NAD HEENT Reports moist mucous membranes normocephalic and atraumatic Eyes PERRL and EOMs intact bilaterally Neck full ROM and supple Resp normal respiratory effort and clear to auscultation bilaterally Cardio regular rate, regular rhythm and no murmurs GI non-tender and non-distended Auscultation: normoactive bowel sounds Palpation: soft Back/Spine no CVA tenderness General Back: other FROM Extremity normal to inspection General Extremety ED: Negative for edema, pulses abnormal or tenderness General Extremity: Negative for edema or pulses abnormal Neuro oriented x3, CN's II-XII intact bilaterally, no focal motor deficits, no sensory deficits noted and gait normal Sensorium / Orientation: awake and alert Motor Exam: strength 5/5 throughout Skin no rashes or lesions noted and no wounds Heart Score History: Moderately Suspicious ECG: Normal Age: >45 - <65 years Risk Factors: 1 or 2 Risk Factors Troponin: </= Normal Limit Score: 3 MDM MDM MDM Narrative Medical decision making narrative: Initial work-up negative including a troponin of 12, this was repeated 2 hours later and the reading is 12 on that one as well for a delta of 0. The rest of her work-up is negative, her liver enzymes and lipase are within normal limits, and she did not have recurrence of her symptoms. Given the negative troponin twice after an hour worth of intense pain I think this is less likely to be cardiac. Certainly possibility that this was GI or biliary in nature, but I do not think she needs emergent imaging given that all of her labs are normal and she has had no recurrence of her symptoms making choledocholithiasis much less likely. At this time I recommend a PPI daily and following up, returning for intractable recurrent symptoms and she is comfortable with that plan. Lab Data Attestation: I reviewed the patient's lab results. Labs: Laboratory Results - last 24 hr 07/18/21 07/18/21 07/18/21 17:20 17:20 19:40 WBC 10.4 RBC 5.08 Hgb 14.3 Hct 45.8 MCV 90.2 MCH 28.1 MCHC 31.2 L RDW Std Deviation 44.7 H RDW Coeff of Aj 13.4 Plt Count 477 H MPV 9.2 Immature Gran % (Auto) 0.300 Neut % (Auto) 67.9 Lymph % (Auto) 21.8 [place] % (Auto) 6.0 Eos % (Auto) 3.3 Baso % (Auto) 0.7 Absolute Neuts (auto) 7.1 Absolute Lymphs (auto) 2.27 Nucleated RBC % 0 Sodium 137 Potassium 3.8 Chloride 103 Carbon Dioxide 29.0 Anion Gap 5 BUN 12 Creatinine 0.79 Estim Creat Clear Calc 70.70 Est GFR (MDRD) Af Amer 97 Est GFR (MDRD) Non-Af 80 BUN/Creatinine Ratio 15.2 Glucose 112 H Calcium 9.7 Total Bilirubin 0.30 AST 57 H ALT 53 Alkaline Phosphatase 108 Troponin I High Sens 12 12 Total Protein 8.2 Albumin 3.4 Globulin 4.8 H Albumin/Globulin Ratio 0.7 L Lipase 49 L Radiography Diagnostic Testing: Clinical Impression(s) from Imaging Studies Chest X-Ray 07/18/21 18:09 IMPRESSION: No acute cardiopulmonary disease or major interval change. Electronically Signed: Brandt Francis DO at 18:58 EST Reading Location ID and State: [address] [place] [address] Tel [phone], Service support , EKG Initial EKG: Attestation: I personally reviewed and interpreted this EKG as follows: Interpretation: Sinus Rhythm and No Acute Injury Pattern Comments: LAD Prior EKG tracings: available for review (07/05/21) Prior: Unchanged Discharge Plan Triage Chief Complaint: Chest Pain ED Provider: Parish Sousa Dx/Rx/DC Orders Clinical Impression: Acute upper abdominal pain, Chest pain of uncertain etiology Instructions: Abdominal Pain Prescriptions: New pantoprazole 40 mg tablet,delayed release (DR/EC) 40 mg PO DAILY Qty: 30 RF: 0 No Action cilostazol 50 mg Tablet 50 mg PO BID RF: 0 clopidogrel [Plavix] 75 mg Tablet 75 mg PO DAILY RF: 0 Pepcid Complete 10-800-165 mg Tablet,Chewable 1 tab PO QHS RF: 0 oxycodone-acetaminophen [Percocet] 5-325 mg tablet 1 tab PO Q4H PRN (Reason: pain) 5 Days Qty: 20 RF: 0 Primary Care Provider: Sarah South Referrals: Sarah South MD [Primary Care Provider] - 3-5 Days if not improving Disposition Disposition: Home, Self Care
--- NOTE | 2021-07-18 17:36 | EKG12_ITS ---
Test Reason : CP Blood Pressure : / mmHG Vent. Rate : 082 BPM Atrial Rate : 082 BPM P-R Int : 164 ms QRS Dur : 094 ms QT Int : 372 ms P-R-T Axes : 058 -32 061 degrees QTc Int : 434 ms Normal sinus rhythm Left axis deviation Consider Left ventricular hypertrophy Septal PA, age undetermined, cannot be excluded Abnormal ECG Confirmed by JOHN CLEMENTS, ALYSSA ([id number]), legal editor CORI MCHUGH ([id number]) on 07/22/2021 11:17:47 AM Referred By: KRISTA Confirmed By:ALYSSA LOPEZ MD
[2021-07-18 17:52] LABS: Absolute Lymphocyte Count 2.27 X10^3/uL (0.83-4.51); Absolute Neutrophil Count 7.1 X10^3/uL (2.0-7.7); Basophil# 0.07 X10^3/uL; Basophil% 0.7 % (0-1); Eosinophil# 0.34 X10^3/uL; Eosinophils% 3.3 % (0-5); Hematocrit 45.8 % (37-47); Hemoglobin 14.3 g/dL (12.0-15.0); Lymphocyte # 2.27 X10^3/ul (0.83-4.51); Lymphocyte % 21.8 % (19-41); Mean Corp Hgb Conc 31.2 g/dL (32-36); Mean Corpuscular Hgb 28.1 pg (27.0-32.0); Mean Corpuscular Volume 90.2 fL (81-99); Mean Platelet Vol. 9.2 fl (6.2-12.0); Monocyte# 0.62 X10^3/uL; NRBC Flagged by Analyzer 0 % (0-5); Neutrophil # 7.08 X10^3/uL (2.7-7.7); Neutrophil % 67.9 % (47-70); Platelet Count 477 K/mm3 (150-450); RBC Distribution Width CV 13.4 % (11.6-14.6); RBC Distribution Width SD 44.7 fl (35.1-43.9); Red Blood Count 5.08 M/mm3 (4.2-5.4); White Blood Count 10.4 K/mm3 (4.4-11.0)
[2021-07-18 18:08] VITALS: BP 131/69; PULSE 88; RESP 30; O2SAT 95
--- NOTE | 2021-07-18 18:09 | RAD_ITS ---
STUDY: X-RAY CHEST REASON FOR EXAM: Female, 55 years old. Chest pain. Epigastric pain beginning at 1630. Cholecystectomy on July 05. Nausea. TECHNIQUE: Single AP portable view of the chest. COMPARISON: 07/03/2021. FINDINGS: The lungs are clear and expanded. There is no demonstrated pleural abnormality. Normal size heart. Normal mediastinum and bárbara. Normal visualized pulmonary arteries. Normal visualized aortic arch and descending thoracic aorta. There are diffuse degenerative changes of the visualized thoracic spine. Normal visualized ribs, clavicles, and shoulders. There is no demonstrated abnormality of the visualized soft tissue structures of the upper abdomen. RAD/Chest 1 View (Portable) IMPRESSION: No acute cardiopulmonary disease or major interval change. Electronically Signed: Brandt Francis DO at 18:58 EST ,
[2021-07-18 18:15] LABS: ALB/GLOB Ratio 0.7 RATIO (0.9-2.4); AST(SGOT) 57 U/L (15-37); Alanine Aminotransfer ALT/SGPT 53 U/L (13-56); Albumin, Serum 3.4 g/dL (3.2-5.0); Alkaline Phosphatase 108 U/L (45-117); Anion Gap 5 (5-15); BUN 12 mg/dL (7-18); BUN/Creat Ratio 15.2 RATIO (10-20); Calcium,Total 9.7 mg/dL (8.5-10.1); Chloride 103 mmol/L (98-107); Creatinine, Serum 0.79 mg/dL (0.55-1.02); EST Glomerular Filtration Rate 80 mL/min (>60); Est Glom Filt Rate - Afr Amer 97 mL/min (>60); Globulin 4.8 g/dL (2.2-4.2); Glucose 112 mg/dL (74-106); Lipase 49 U/L (73-393); Potassium 3.8 mmol/L (3.5-5.1); Protein, Total 8.2 g/dL (6.4-8.2); Sodium Level 137 mmol/L (136-145); Troponin-I HS 12 pg/mL (3.0-54.0)
[2021-07-18 19:04] VITALS: BP 143/64; PULSE 83; RESP 19; O2SAT 99
[2021-07-18 20:03] LABS: Troponin-I HS 12 pg/mL (3.0-54.0)
[2021-07-18 20:27] VITALS: BP 159/67; PULSE 85; RESP 22; O2SAT 98
[2021-07-18 21:38] VITALS: BP 144/87; PULSE 68; RESP 18
== END 2021-07-18 21:39 | disposition home or self-care (01) ==
PROVIDERS: Emergency Provider Emergency Medicine; PCP Family Medicine; Visit Provider Emergency Medicine
DX: R07.9 Chest pain, unspecified (principal); I73.9 Peripheral vascular disease, unspecified; R10.11 Right upper quadrant pain; F17.210 Nicotine dependence, cigarettes, uncomplicated; Z79.02 Long term (current) use of antithrombotics/antiplatelets; Z79.899 Other long term (current) drug therapy; Z86.16 Personal history of COVID-19; Z90.49 Acquired absence of other specified parts of digestive tract
CPT/HCPCS: 71045; 80053; 83690; 84484; 85025; 93005; 99284; A4216

== ENCOUNTER → 2022-04-02 | Outpatient (CLI) | payer OTHER, SELFPAY ==
--- NOTE | 2022-04-02 09:02 | ART_ITS ---
Reason For Study: AFTERCARE (LLE ANGIOPLASTY) Procedure A bilateral lower extremity continuous wave Doppler with analog waveform analysis and ankle brachial indexes. Left Segmental Pressures Left brachial= 114mmHg. Left posterior tibial artery = 0.96mmHg. Left dorsalis pedis artery = 0.92mmHg. The left posterior tibial artery waveforms are triphasic. The left dorsalis pedis waveforms are triphasic. Right Segmental Pressures Right brachial= 112mmHg. Right posterior tibial artery = 0.43mmHg. Right dorsalis pedis artery = 0.58mmHg. The right posterior tibial artery waveforms are monophasic. The right dorsalis pedis waveforms are monophasic. Indices The right resting ankle brachial index is 0.58. The right ankle brachial index by the posterior tibial artery is 0.43. The right ankle brachial index by the dorsalis pedis is 0.58. The left resting ankle brachial index is 0.96. The left ankle brachial index by the posterior tibial artery is 0.96. The left ankle brachial index by the dorsalis pedis is 0.92. VL/Ankle Brachial Index Interpretation Summary Right leg with moderate occlussive disease at rest with nmonophasic flow and AB I 0.58. Left leg with normal triphasic flow and STEFANO 0.96. Ordering Physician: Fernando Coulter Referring Physician: Agustín Man Performed By: Purvi Flores RVT, RDCS
== END | disposition home or self-care (01) ==
LOC: CVS 09:01
PROVIDERS: PCP Family Medicine; Referring Provider Surgery Vascular Surgery; Visit Provider Surgery Vascular Surgery
DX: Z48.812 Encounter for surgical aftercare following surgery on the circulatory system (principal); I70.213 Atherosclerosis of native arteries of extremities with intermittent claudication, bilateral legs; I77.1 Stricture of artery
CPT/HCPCS: 93922

== ENCOUNTER → 2022-09-29 | Outpatient (CLI) | payer OTHER, SELFPAY ==
--- NOTE | 2022-09-29 08:52 | AAVD_ITS ---
Reason For Study: Atherosclerosis Aorta Measurements Aorta Doppler Measurements Proximal aorta measures2.15 x 2.15cm. in cross- Peak systolic flow velocities within the proximal sectional axis. aorta measure 79.6 cm/sec. Proximal aorta measures2.10cm. in longitudinal Peak systolic flow velocities within the mid aorta axis. measure 121.2 cm/sec. Mid aorta measures1.70 x 1.69cm. in cross- Peak systolic flow velocities within the distal sectional axis. aorta measure 139.7 cm/sec. Mid aorta measures1.70cm. in longitudinal axis. Distal aorta measures1.55 x 1.55cm. in cross- sectional axis. Distal aorta measures1.56cm. in longitudinal axis. Left Iliac Artery Left iliac artery measures 1.10 x 1.09 cm. in the cross-sectional axis. Left iliac artery measures 1.11 cm. in the longitudinal axis. Peak systolic velocity in the left iliac artery measures 100.8 cm/sec. Right Iliac Artery Right iliac artery measures 1.01 x 0.98 cm. in the cross-sectional axis. Right iliac artery measures 0.98 cm. in the longitudinal axis. Peak systolic velocity in the right iliac artery measures 147.4 cm/sec. Procedure Aorta IVC Iliac vasculature or bypass grafts [id number]. Exam performed in department. VL/Abd Aortic/IVC Duplex scan Interpretation Summary No aortoiliac stenosis or aneurysm. Ordering Physician: Fernando Coulter Referring Physician: Sarah South Performed By: Mary Anne Chris RVT
--- NOTE | 2022-09-29 08:52 | ART_ITS ---
Reason For Study: Atherosclerosis Procedure A bilateral lower extremity continuous wave Doppler with analog waveform analysis and ankle brachial indexes. Left Segmental Pressures Left brachial= 126mmHg. Left posterior tibial artery = 107mmHg. Left dorsalis pedis artery = 84mmHg. Left digit = 68 mmHg. The left dorsalis pedis waveforms are biphasic. The left posterior tibial artery waveforms are biphasic. Right Segmental Pressures Right brachial= 130mmHg. Right posterior tibial artery = 69mmHg. Right dorsalis pedis artery = 60mmHg. Right digit = 57 mmHg. The right dorsalis pedis waveforms are monophasic. The right posterior tibial artery waveforms are monophasic. Indices The right ankle brachial index by the dorsalis pedis is 0.46. The right ankle brachial index by the posterior tibial artery is 0.53. The right digital-brachial index is 0.44. The left ankle brachial index by the dorsalis pedis is 0.65. The left ankle brachial index by the posterior tibial artery is 0.82. The left digital-brachial index is 0.52. VL/Ankle Brachial Index Interpretation Summary Right moderate occlussive disease with STEFANO 0.53 and left mild with STEFANO 0.82. DB I 0.44 and 0.52. Ordering Physician: Fernando Coulter Referring Physician: Sarah South Performed By: Mary Anne Chris RVT
== END | disposition home or self-care (01) ==
LOC: CVS 08:51
PROVIDERS: PCP Family Medicine; Referring Provider Surgery Vascular Surgery; Visit Provider Surgery Vascular Surgery
DX: I70.213 Atherosclerosis of native arteries of extremities with intermittent claudication, bilateral legs (principal); I77.1 Stricture of artery; Z48.812 Encounter for surgical aftercare following surgery on the circulatory system
CPT/HCPCS: 93922; 93978

== ENCOUNTER → 2022-12-12 | Outpatient (CLI) | payer OTHER, SELFPAY ==
--- NOTE | 2022-12-12 07:18 | CT_ITS ---
We are attempting to reach an attending provider to discuss findings. An addendum with communication details will be sent when the communication is complete. STUDY: CTA OF THE ABDOMINAL AORTA AND BILATERAL LOWER EXTREMITIES REASON FOR EXAM: Female, 57 years old. ATHEROSCLEROSIS OF BILATERAL LEGS RADIATION DOSAGE (If Supplied By Facility): CTDIvol = ( 6.31 ) mGy, DLP = ( 1248.07 ) mGycm TECHNIQUE: Axial CT angiography multi-detector data acquisition was obtained from the to the following intravenous administration of IV 100mL Isovue-370. Axial images and MIP images were reconstructed from the axial data set. Post-processing of the angiographic images was performed, with multiplanar reformation and 3D reconstruction. Individualized dose optimization techniques were used for this CT. TECHNICAL QUALITY: Good COMPARISON: None. Descriptors of Narrowing: None (0%) Mild (< 50%) Moderate (50-70%) Severe (70-90%) Subtotal/Total Occlusion (90-100%) Non-Evaluable (technically non-diagnostic FINDINGS: Abdominal aorta: Diffuse atherosclerotic plaque is present throughout the abdominal aorta. Mild aneurysmal dilatation of the infrarenal region of the abdominal aorta maximally measuring 3.23 cm. No demonstrated dissection. No periaortic inflammation or hemorrhage is present. Celiac and superior mesenteric arteries: No demonstrated narrowing. Inferior mesenteric artery: No demonstrated narrowing. Right renal artery(arteries): No demonstrated narrowing. Left renal artery(arteries): No demonstrated narrowing. Right common iliac artery: There is mild diffuse narrowing. Right external iliac artery: There is mild diffuse narrowing. With both calcified and noncalcified plaque and mural thrombus at the distal aspect of the artery. Right internal iliac artery: There is moderate diffuse narrowing. Left common iliac artery: There is mild diffuse narrowing. Left external iliac artery: No demonstrated narrowing. Left internal iliac artery: There is moderate diffuse narrowing. RIGHT LOWER EXTREMITY Right common femoral artery: There is mild to moderate diffuse narrowing. Right profundus femoris: There is mild diffuse narrowing. Right superficial femoral: The proximal and middle one third regions are completely occluded with reconstitution due to collateral vessels in the distal one third region which is diffusely narrowed down to its junction with the popliteal artery. Right popliteal artery: No demonstrated narrowing. Right tibioperoneal trunk: There is mild diffuse narrowing due to atherosclerotic plaque. Right anterior tibial artery: There is mild diffuse narrowing, with visualization of the vessel to the distal calf. Right posterior tibial artery: There is mild diffuse narrowing, with visualization of the vessel to the distal calf. Right peroneal artery: There is mild diffuse narrowing, with visualization of the vessel to the distal calf. LEFT LOWER EXTREMITY Left common femoral artery: No demonstrated narrowing. Left profundus femoris: No demonstrated narrowing. Left superficial femoral: No demonstrated narrowing. Left popliteal artery: No demonstrated narrowing. Left tibioperoneal trunk: No demonstrated narrowing. Left anterior tibial artery: There is mild diffuse narrowing, with visualization of the vessel to the distal calf. Left posterior tibial artery: There is mild diffuse narrowing, with visualization of the vessel to the distal calf. Left peroneal artery: There is mild diffuse narrowing, with visualization of the vessel to the distal calf. NONVASCULAR FINDINGS: There are scattered small pulmonary calcifications consistent with old granulomatous disease. Fibrotic scarring is seen in the left lung base. Normal liver. No intrahepatic biliary duct dilatation or liver mass. There is non-visualization of the gallbladder, which may be secondary to either contraction or a prior cholecystectomy. Normal spleen. Normal pancreas. Normal bilateral adrenal glands. Normal right kidney. Normal left kidney. No hydronephrosis or renal masses. No large stones. Normal visualized stomach. Normal small intestine. Normal colon. No bowel dilatation or obstruction. No free air or free fluid. The appendix is visualized and appears normal. Unremarkable uterus and adnexa. Normal inferior vena cava. Normal retroperitoneum. Normal urinary bladder. Normal abdominal wall. Normal osseous structures. CT/CTA Abd w/Runoff W/WO Contrast IMPRESSION: Occlusion of the proximal and middle one third aspect of the right superficial femoral artery 1. Right superficial femoral: The proximal and middle one third regions are completely occluded with reconstitution due to collateral vessels in the distal one third region which is diffusely narrowed down to its junction with the popliteal artery. Electronically Signed: Saturnino Vasquez MD at 9:27 EDT Reading Location ID and State: [facility] / [place] , Service support ,
== END | disposition home or self-care (01) ==
PROVIDERS: PCP Family Medicine; Referring Provider Surgery Vascular Surgery; Visit Provider Surgery Vascular Surgery
DX: I70.213 Atherosclerosis of native arteries of extremities with intermittent claudication, bilateral legs (principal); I77.1 Stricture of artery
CPT/HCPCS: 75635; Q9967

== ENCOUNTER → 2023-02-23 | Outpatient (CLI) | payer OTHER, SELFPAY | END | disposition home or self-care (01) | LOC: SL 20:15 | PROVIDERS: PCP Family Medicine; Referring Provider Family Medicine; Visit Provider Family Medicine | DX: G47.30 Sleep apnea, unspecified (principal) | CPT/HCPCS: 95811 ==

== ENCOUNTER → 2023-02-24 | Outpatient (CLI) | payer OTHER, SELFPAY ==
[2023-02-24 07:30] LABS: Absolute Lymphocyte Count 3.14 X10^3/uL (0.83-4.51); Basophil# 0.07 X10^3/uL; Basophil% 0.8 % (0-1); Eosinophil# 0.31 X10^3/uL; Eosinophils% 3.4 % (0-5); Hemoglobin 14.9 g/dL (12.0-15.0); Lymphocyte # 3.14 X10^3/ul (0.83-4.51); Lymphocyte % 34.4 % (19-41); Mean Corpuscular Hgb 29.3 pg (27.0-32.0); Mean Corpuscular Volume 94.3 fL (81-99); Mean Platelet Vol. 9.7 fl (6.2-12.0); Monocyte# 0.61 X10^3/uL; Monocyte% 6.7 % (0-10); NRBC Flagged by Analyzer 0 % (0-5); Neutrophil # 4.96 X10^3/uL (2.7-7.7); Neutrophil % 54.4 % (47-70); Platelet Count 352 K/mm3 (150-450); RBC Distribution Width CV 13.2 % (11.6-14.6); RBC Distribution Width SD 46.1 fl (35.1-43.9); Red Blood Count 5.09 M/mm3 (4.2-5.4); White Blood Count 9.1 K/mm3 (4.4-11.0)
[2023-02-24 08:27] LABS: ALB/GLOB Ratio 0.9 RATIO (0.9-2.4); AST(SGOT) 15 U/L (15-37); Alanine Aminotransfer ALT/SGPT 19 U/L (13-56); Albumin, Serum 3.6 g/dL (3.2-5.0); Alkaline Phosphatase 80 U/L (45-117); Anion Gap 2 (5-15); BUN 12 mg/dL (7-18); BUN/Creat Ratio 13.2 RATIO (10-20); Calcium,Total 9.3 mg/dL (8.5-10.1); Chloride 105 mmol/L (98-107); Cholesterol 212 mg/dL (200); Creatinine, Serum 0.91 mg/dL (0.55-1.02); EST Glomerular Filtration Rate 67 mL/min (>60); Est Glom Filt Rate - Afr Amer 82 mL/min (>60); Globulin 4.2 g/dL (2.2-4.2); Glucose 101 mg/dL (74-106); High Density Lipoprotein 44 mg/dL; Protein, Total 7.8 g/dL (6.4-8.2); Sodium Level 140 mmol/L (136-145); Thyroid Stim Hormone (TSH) 2.88 uIU/mL (0.358-3.74); Triglycerides 146 mg/dL; Very Low Density Lipoprotein 29 mg/dL (5-40)
[2023-02-24 09:36] LABS: Vitamin D,25 Hydroxy 19.2 ng/mL
== END | disposition home or self-care (01) ==
LOC: LAB 06:15
PROVIDERS: PCP Family Medicine; Referring Provider Family Medicine; Visit Provider Family Medicine
DX: Z00.00 Encounter for general adult medical examination without abnormal findings (principal); I73.9 Peripheral vascular disease, unspecified; F17.200 Nicotine dependence, unspecified, uncomplicated; E78.5 Hyperlipidemia, unspecified; R53.83 Other fatigue
CPT/HCPCS: 36415; 80053; 80061; 82306; 84443; 85025

== ENCOUNTER → 2023-03-10 | Outpatient (CLI) | payer OTHER, SELFPAY | END | disposition home or self-care (01) | LOC: SL 11:24 | PROVIDERS: PCP Family Medicine; Visit Provider Family Medicine | DX: Z00.00 Encounter for general adult medical examination without abnormal findings (principal) ==

== ENCOUNTER → 2023-04-10 | Outpatient (CLI) | payer OTHER, SELFPAY ==
--- NOTE | 2023-04-10 14:43 | BI_ITS ---
MAMMOGRAPHY - BILATERAL SCREENING 3-D TOMOSYNTHESIS REASON FOR EXAM: Female, 57 years old. SCREENING PERTINENT HISTORY: No significant family history. TECHNIQUE: 2-D mammograms and 3-D Tomosynthesis of the breast (s) were performed. CAD was performed. COMPARISON: None. FINDINGS: The breast composition is Extermely dense tissue. Scattered benign calcifications are seen. No dense spiculated masses or suspicious microcalcifications are identified. No architectural distortion is identified. There is no skin thickening or retraction. There has been no significant change since the prior study. BI/SCRN MAMM (CAD)W/ROXI BILAT IMPRESSION: No mammographic signs of malignancy. Routine yearly mammograms recommended. ASSESSMENT CATEGORY: BIRADS Category 1: Negative. A letter regarding these results will be sent to the patient by the facility within 30 days. FOLLOW UP RECOMMENDATION: Yearly follow up mammogram recommended. (A) Approximately 10% of breast cancers are not detected by mammography. A normal mammogram should not delay biopsy of a clinically suspicious abnormality. Electronically Signed: Antonino Dalton MD at 9:00 EST ,
== END | disposition home or self-care (01) ==
PROVIDERS: PCP Family Medicine; Referring Provider Family Medicine; Visit Provider Family Medicine
DX: Z12.31 Encounter for screening mammogram for malignant neoplasm of breast (principal)
CPT/HCPCS: 77063; 77067

== ENCOUNTER → 2023-05-22 | Outpatient (CLI) | payer OTHER, SELFPAY ==
--- NOTE | 2023-05-22 10:14 | MRI_ITS ---
STUDY: BILATERAL BREAST MR WITHOUT AND WITH CONTRAST REASON FOR EXAM: Female, 57 years old. Dense breast tissue. TECHNIQUE: Multi-sequence multi-echo imaging of both breasts was performed with a dedicated breast coil. T1-weighted and T2-weighted images were performed before the administration of contrast. T1-weighted images were also performed after the intravenous administration of 17 cc of Clariscan contrast. COMPARISON: Bilateral mammograms dated April 10, 2023. FINDINGS: RIGHT BREAST: Heterogeneously dense fibroglandular tissue with minimal background enhancement. No abnormal enhancing masses or areas of non-mass enhancement in the right breast. LEFT BREAST: Heterogeneously dense fibroglandular tissue with minimal background enhancement. No abnormal enhancing masses or areas of non-mass enhancement in the right breast. No enlarged or abnormal lymph nodes. No abnormality in the visualized regions of the chest or liver. MRI/Breast Bilateral W/O and W IMPRESSION: No abnormality of the breast MRI with contrast. Yearly follow-up mammogram recommended. CATEGORY: BIRADS Category 2: Benign. A letter regarding these results will be sent to the patient by the facility within 30 days. Electronically Signed: Renato Edwards MD at 14:07 EST ,
--- OUTSIDE RECORDS SUMMARY | 2023-05-22 10:42 | XMS RPT_ITS | CCD ---
Author Name Unknown Address [address] [place] [address] Organization [facility] Results Test Name Value Interpretation Reference Range Facil ity Summary Purpose Family History No Family History Records FoundNo Family History Records Found Advance Directives No Advanced Directives Records FoundNo Advanced Directives Records Found Additional Source Comments INFORMATION SOURCE (unrecogn ized section and content) DATE CREATED AUTHOR AUTHOR'S ORGANDIANA ATION 02/08/2021 [facility] FOR RECORDS PERTAINING TO PATIENTS WHO ARE OR HAVE BEEN ENROLLED IN A CHEMICAL DEPENDENCY/SUBSTANCEABUSE PROGRAM, SOME INFORMATION MAY BE OMITTED. This clinical summary was aggregated from multiple sources. Caution should be exercised in using it in the provision of clinical care. This summary normalizes information from multiple sources, and as a consequence, information in this document may materially change the coding, format and clinical context of patient data. In addition, data may be omitted in some cases. CLINICAL DECISIONS SHOULD BE BASED ON THE PRIMARY CLINICAL RECORDS. [facility] [employer] [facility]. provides no warranty or guarantee of the accuracy or completeness of information in this document.
== END | disposition home or self-care (01) ==
LOC: MRI 10:11
PROVIDERS: PCP Family Medicine; Referring Provider Family Medicine; Visit Provider Family Medicine
DX: R92.343 Mammographic extreme density, bilateral breasts (principal)
CPT/HCPCS: 77049; A9575; A4216; C8908

== ENCOUNTER → 2023-09-07 | Outpatient (CLI) | payer OTHER, SELFPAY ==
--- NOTE | 2023-09-07 13:49 | ART_ITS ---
Reason For Study: HX LLE Angioplasty Procedure A bilateral lower extremity continuous wave Doppler with analog waveform analysis and ankle brachial indexes. Left Segmental Pressures Left brachial= 178mmHg. Left posterior tibial artery = 107mmHg. Left dorsalis pedis artery = 90mmHg. Left digit = 96 mmHg. The left posterior tibial artery waveforms are monophasic. The left dorsalis pedis waveforms are biphasic. Right Segmental Pressures Right brachial= 171mmHg. Right posterior tibial artery = 95mmHg. Right dorsalis pedis artery = 84mmHg. Right digit = 76 mmHg. The right posterior tibial artery waveforms are monophasic. The right dorsalis pedis waveforms are monophasic. Indices The right ankle brachial index by the posterior tibial artery is 0.53. The right ankle brachial index by the dorsalis pedis is 0.47. The right digital-brachial index is 0.43. The left ankle brachial index by the posterior tibial artery is 0.60. The left ankle brachial index by the dorsalis pedis is 0.51. The left digital-brachial index is 0.54. VL/Ankle Brachial Index Interpretation Summary Moderate PAD at rest with STEFANO 0.53 and 0.51 and DBI 0.43 and 0.54. Ordering Physician: Fernando Coulter Referring Physician: Sarah South Performed By: David Lal RVT
== END | disposition home or self-care (01) ==
LOC: CVS 13:49
PROVIDERS: PCP Family Medicine; Referring Provider Surgery Vascular Surgery; Visit Provider Surgery Vascular Surgery
DX: Z48.812 Encounter for surgical aftercare following surgery on the circulatory system (principal); I77.1 Stricture of artery
CPT/HCPCS: 93922

== ENCOUNTER 2023-11-02 17:14 | Emergency (ER) | payer OTHER, SELFPAY ==
[2023-11-02 17:15] VITALS: BP 159/76; PULSE 102; RESP 16; TEMP 36.3; O2SAT 99; BMI 29.9
--- NOTE | 2023-11-02 17:28 | EKG12_ITS ---
Test Reason : Blood Pressure : / mmHG Vent. Rate : 094 BPM Atrial Rate : 094 BPM P-R Int : 166 ms QRS Dur : 096 ms QT Int : 358 ms P-R-T Axes : 050 -24 059 degrees QTc Int : 447 ms Normal sinus rhythm Moderate voltage criteria for LVH, may be normal variant ( R in aVL , [place] product ) Anteroseptal infarct , age undetermined Abnormal ECG Confirmed by FUENTES CLEMENTS, BRIAN ([id number]), online editor CORI MCHUGH ([id number]) on 11/03/2023 8:19:55 AM Referred By: ASHLIE Confirmed By:BRIAN DILL MD
--- NOTE | 2023-11-02 17:30 | EDS_ITS ---
HPI History of Present Illness Chief Complaint: Chest Pain Informant: patient Narrative Narrative: Very pleasant 58-year-old female presenting to the emergency room with 2 weeks of constant chest tightness. Patient states that she has a constant tightness in her chest that sometimes gets burning particularly in the lower midline of her chest. She states that she takes Pepcid daily [id number]. She states she has not had any problems eating or drinking. She states for the past week she has had a swollen ball-like sensation in her anterior lateral left shoulder. She recently started Plavix due to a blockage in her right leg and is supposed to see vascular surgery at the end of this month for intervention. Patient denies any fever. No cough. She states her smoking has decreased substantially down to about patient denies any known heart conditions. Patient states the left shoulder felt like this when she had COVID. She denies any pain or change in symptoms when she moves the arm. Patient states that she went to the park this past weekend and did a lot of walking and had no change in her symptoms and early fatigue. [facility] Medical History Cholelithiasis Acute cholecystitis COVID Wears partial dentures Gastric reflux Smoker History of edema History of pain when walking PVD (peripheral vascular disease) Pancreatitis, acute Home Medications ?Medication ?Instructions ?Recorded ?Last Taken ?Type cilostazol 50 mg tablet 100 mg PO BID 05/19/21 Unknown History clopidogrel 75 mg tablet (Plavix) 75 mg PO DAILY 05/19/21 06/30/21 History famotidine-Ca carb-mag hydrox 10 1 tab PO QHS 06/12/21 Unknown History mg-800 mg-165 mg chewable tablet (Pepcid Complete) bupropion HCl 150 mg tablet,12 hr 150 mg PO BID 11/02/23 Unknown History sustained-release doxycycline monohydrate 100 mg 100 mg PO BID #20 CAPSULES 11/02/23 Unknown Rx capsule Allergy/AdvReac Type Severity Reaction Status Date / Time Penicillins Allergy Swelling Verified 11/02/23 17:16 Surgical History History of laparoscopic cholecystectomy Hx of vascular surgery H/O tubal ligation Social History Smoking Status: Current every day smoker tobacco type: cigarettes alcohol intake: current ROS ROS ED Constitutional Constitutional ED: Denies chills, fever(s) or weight loss Eyes Eyes: Denies change in vision or diplopia ENT ENT ED: Denies ear pain, rhinorrhea or sore throat Cardiovascular Cardiovascular: Reports chest pain; Denies orthopnea, palpitations or racing heartbeat Respiratory/Chest Respiratory/Chest: Denies cough, dyspnea or orthopnea Gastrointestinal Gastrointestinal: Reports other Details: See history of present illness ; Denies abdominal pain, diarrhea, nausea or vomiting Genitourinary Genitourinary ED: Denies dysuria, hematuria or urinary frequency Musculoskeletal Musculoskeletal: Reports other Details: See history of present illness ; Denies arthralgias, back pain, myalgias or neck pain Integumentary Denies abscess or rash Neurologic Neurologic: Denies headache(s) or weakness Psychiatric Psychiatric: Denies anxiety, depression, suicidal ideation or suicidal thoughts Endocrine Endocrinology: Denies polydipsia, polyphagia or polyuria Allergic/Immunologic Allergic/Immunologic ED: Denies mouth swelling, tongue swelling or urticaria EXAM Physical Exam Const Vital Signs: 11/02/23 17:15 11/02/23 17:27 11/02/23 19:09 Temperature 97.3 F L Temperature Source Temporal Pulse Rate 102 H 89 Respiratory Rate 16 26 H Respiratory Effort Normal Non-Labored Blood Pressure 159/76 H 141/86 H Blood Pressure Mean 103 104 Pulse Ox 99 93 Oxygen Delivery Method Room Air Room Air 11/02/23 20:00 Temperature Temperature Source Pulse Rate 89 Respiratory Rate 24 H Respiratory Effort Blood Pressure 148/83 H Blood Pressure Mean 104 Pulse Ox 92 Oxygen Delivery Method Positive well nourished and well developed General Appearance ED: well developed HEENT Reports normocephalic, head/scalp atraumatic and moist mucous membranes Eyes PERRL and EOMs intact bilaterally Neck no lymphadenopathy, supple and no JVD Resp normal respiratory effort Auscultation: diminished lung sounds left lower Cardio regular rate, regular rhythm and no murmurs GI normal to inspection, nondistended, normoactive bowel sounds and non-tender Palpation: soft Back/Spine no CVA tenderness and normal ROM Extremity normal to inspection General Extremety ED: Negative for edema General Extremity: Negative for edema Neuro oriented x3 and CN's II-XII intact bilaterally Sensorium / Orientation: alert Motor Exam: strength 5/5 throughout Psych mental status grossly normal Mood & Affect: Negative for depressed or tearful Skin no rashes or lesions noted and no wounds MDM MDM MDM Narrative Medical decision making narrative: Differential diagnosis includes but not limited to aortic dissection aortic aneurysm ACS pulmonary embolism pleural effusion pneumonia pneumothorax hemothorax cancer. My independent interpretation of the plain films of the chest x-ray is an acute effusion on the left. Patient has had prior imaging the long which demonstrated granulomatous changes. White count is 7.3 with a hemoglobin of 14.5 and a platelet count of 396. BUN/creatinine normal. Troponin is normal at 14. Because of the chest x-ray findings and her symptoms a CTA of the chest was obtained. This demonstrated an aneurysmal aorta of about 4 cm. There is pleural effusion on the left again noted no pulmonary embolism noted. Left lower lung infiltrative changes noted. Please see radiologist details for further read. The above findings were discussed with the patient. I am recommending that she take antibiotics and we will have her follow-up to ensure resolution. She was advised that this does not show resolution she may require a thoracentesis to drain the fluid and to test it. We did cover both transudative and exudative causes of the effusion clued a malignancy, tuberculosis, CHF, pneumonia. Patient and her understand the plan and are comfortable with it. History & Record Review Discussion w/independent historian: Patient and Significant other Lab Data Attestation: I reviewed the patient's lab results. Labs: Laboratory Results - last 24 hr 11/02/23 17:45 WBC 7.3 RBC 5.09 Hgb 14.5 Hct 46.2 MCV 90.8 MCH 28.5 MCHC 31.4 L RDW Std Deviation 43.0 RDW Coeff of Aj 13.0 Plt Count 396 MPV 9.2 Immature Gran % (Auto) 0.400 Neut % (Auto) 62.8 Lymph % (Auto) 24.1 Starr % (Auto) 7.4 Eos % (Auto) 4.5 Baso % (Auto) 0.8 Absolute Neuts (auto) 4.6 Absolute Lymphs (auto) 1.75 Nucleated RBC % 0 Sodium 137 Potassium 3.7 Chloride 103 Carbon Dioxide 30.0 Anion Gap 4 L BUN 11 Creatinine 0.97 Estim Creat Clear Calc 65.10 Est GFR (MDRD) Af Amer 75 Est GFR (MDRD) Non-Af 62 BUN/Creatinine Ratio 11.3 Glucose 121 H Calcium 9.6 Troponin I High Sens 14 Radiography Diagnostic Testing: Clinical Impression(s) from Imaging Studies Chest X-Ray 11/02/23 17:30 IMPRESSION: Left lower lung infiltrate and pleural effusion. Electronically Signed: Parish Christianson MD at 18:52 EDT Reading Location ID and State: [address] [place] [address] , Service support , Chest CTA 11/02/23 17:41 IMPRESSION: CTA chest examination, without a demonstrated pulmonary embolism or arterial dissection. Left lower lung infiltrate and pleural effusion. Aneurysmal dilatation of the thoracic aorta. Electronically Signed: Parish Christianson MD at 20:05 EDT , EKG Initial EKG: Attestation: I personally reviewed and interpreted this EKG as follows: Comments: Normal sinus rhythm ventricular rate of 94 bpm. Discharge Plan Triage Chief Complaint: Chest Pain ED Provider: Daryl Jordan Dx/Rx/DC Orders Clinical Impression: Pleural effusion, Pneumonia, Chest pain Instructions: ED Pleural Effusion Prescriptions: New doxycycline monohydrate 100 mg capsule 100 mg PO BID Qty: 20 0RF No Action cilostazol 50 mg Tablet 100 mg PO BID clopidogrel [Plavix] 75 mg Tablet 75 mg PO DAILY Pepcid Complete 10-800-165 mg Tablet,Chewable 1 tab PO QHS bupropion HCl 150 mg tablet sustained-release 12 hr 150 mg PO BID Primary Care Provider: Sarah South Referrals: Sarah South MD [Primary Care Provider] - 1 Week Activity Restrictions/Additional Instructions: As discussed you have what is called a pleural effusion or fluid in between the lung and the chest wall. There can be many different types of a pleural effusion. Based on the CT it appears to have more of a pneumonia like appearance in the lung which is a common cause of a pleural effusion. However given your history of smoking and your symptoms and the lack of infectious symptoms it is vital that you follow-up to ensure resolution of the fluid. You are being prescribed doxycycline which is an antibiotic. I would advise you to call your primary care doctor tomorrow to arrange follow- up. As discussed if your fluid does not resolve he may require a thoracentesis to drain the fluid and to test it. This may affect your scheduled outpatient surgery as I would strongly urged you to get this cleared before you have surgery. You may wish to discuss this with your vascular surgeon. Print Language: Citizen Of [place] Disposition Disposition: Home, Self Care
--- NOTE | 2023-11-02 17:30 | RAD_ITS ---
STUDY: X-RAY CHEST REASON FOR EXAM: Female, 58 years old. Chest pain TECHNIQUE: Single AP portable view of the chest. COMPARISON: July 18, 2021 FINDINGS: There is mild left lower lung airspace consolidation. There is right midlung granuloma. There is moderate left pleural effusion. Normal size heart. Normal mediastinum and bárbara. Normal visualized pulmonary arteries. Normal visualized aortic arch and descending thoracic aorta. Normal visualized thoracic spine. Normal visualized ribs, clavicles, and shoulders. There is no demonstrated abnormality of the visualized soft tissue structures of the upper abdomen. RAD/Chest 1 View (Portable) IMPRESSION: Left lower lung infiltrate and pleural effusion. Electronically Signed: Parish Christianson MD at 18:52 EDT ,
--- NOTE | 2023-11-02 17:41 | CT_ITS ---
STUDY: CTA CHEST REASON FOR EXAM: Female, 58 years old. Abnormal chest xray chest pain pulmonary embolism RADIATION DOSAGE (If Supplied By Facility): CTDIvol = ( 21.58 ) mGy, DLP = ( 467.34 ) mGycm TECHNIQUE: The examination was performed with the intravenous administration of IV 100mL Isovue-370. Post-processing of the angiographic images was performed, with multiplanar reformation and 3D reconstruction. Individualized dose optimization techniques were used for this CT. COMPARISON: Chest x-ray FINDINGS: Normal enhancement of the main pulmonary artery and right and left pulmonary arteries. Normal enhancement of the bilateral peripheral pulmonary arteries. There is no demonstrated pulmonary embolism. There is aneurysmal dilatation of the ascending and descending aorta. The transverse diameter of the ascending aorta measures 43 mm''s. The transverse diameter of the ascending aorta measures 40 mm''s. There is no demonstrated aortic dissection. Normal heart and pericardium. There are calcified mediastinal lymph nodes. There are calcified bilateral hilar lymph nodes. Normal visualized trachea and bronchi. The lungs are well expanded. There is mild left lower lung consolidation. There are calcified left upper and right lower lung granulomas. There is a moderate volume left sided pleural effusion. Normal chest wall structures. There are degenerative changes of thoracic spine. Normal visualized upper abdomen. CT/CTA Chest W/WO Contrast IMPRESSION: CTA chest examination, without a demonstrated pulmonary embolism or arterial dissection. Left lower lung infiltrate and pleural effusion. Aneurysmal dilatation of the thoracic aorta. Electronically Signed: Parish Christianson MD at 20:05 EDT ,
[2023-11-02] MEDS: Mag Hydrox/Al Hydrox/Simeth 30 ML UDC PO (17:45)
[2023-11-02] MEDS: Lidocaine 2% Viscous15 ML UDC 15 ML PO (17:45)
[2023-11-02 18:01] LABS: Absolute Lymphocyte Count 1.75 X10^3/uL (0.83-4.51); Absolute Neutrophil Count 4.6 X10^3/uL (2.0-7.7); Basophil# 0.06 X10^3/uL; Basophil% 0.8 % (0-1); Eosinophil# 0.33 X10^3/uL; Eosinophils% 4.5 % (0-5); Hematocrit 46.2 % (37-47); Hemoglobin 14.5 g/dL (12.0-15.0); Lymphocyte # 1.75 X10^3/ul (0.83-4.51); Lymphocyte % 24.1 % (19-41); Mean Corp Hgb Conc 31.4 g/dL (32-36); Mean Corpuscular Hgb 28.5 pg (27.0-32.0); Mean Corpuscular Volume 90.8 fL (81-99); Mean Platelet Vol. 9.2 fl (6.2-12.0); Monocyte# 0.54 X10^3/uL; Monocyte% 7.4 % (0-10); NRBC Flagged by Analyzer 0 % (0-5); Neutrophil # 4.55 X10^3/uL (2.7-7.7); Neutrophil % 62.8 % (47-70); Platelet Count 396 K/mm3 (150-450); Red Blood Count 5.09 M/mm3 (4.2-5.4); White Blood Count 7.3 K/mm3 (4.4-11.0)
[2023-11-02 18:19] LABS: Anion Gap 4 (5-15); BUN 11 mg/dL (7-18); BUN/Creat Ratio 11.3 RATIO (10-20); Calcium,Total 9.6 mg/dL (8.5-10.1); Chloride 103 mmol/L (98-107); Creatinine, Serum 0.97 mg/dL (0.55-1.02); EST Glomerular Filtration Rate 62 mL/min (>60); Est Glom Filt Rate - Afr Amer 75 mL/min (>60); Glucose 121 mg/dL (74-106); Potassium 3.7 mmol/L (3.5-5.1); Sodium Level 137 mmol/L (136-145); Troponin-I HS 14 pg/mL (3.0-54.0)
[2023-11-02 19:09] VITALS: BP 141/86; PULSE 89; RESP 26; O2SAT 93
[2023-11-02 20:00] VITALS: BP 148/83; PULSE 89; RESP 24; O2SAT 92
[2023-11-02 20:57] VITALS: BP 169/80; PULSE 81; RESP 18; TEMP 36.6; O2SAT 93
== END 2023-11-02 21:04 | disposition home or self-care (01) ==
PROVIDERS: Emergency Provider Emergency Medicine; PCP Family Medicine; Visit Provider Emergency Medicine
DX: J90 Pleural effusion, not elsewhere classified (principal); J18.9 Pneumonia, unspecified organism; I71.9 Aortic aneurysm of unspecified site, without rupture; R07.9 Chest pain, unspecified; F17.210 Nicotine dependence, cigarettes, uncomplicated; Z79.02 Long term (current) use of antithrombotics/antiplatelets; Z79.899 Other long term (current) drug therapy
CPT/HCPCS: 71045; 71275; 80048; 84484; 85025; 93005; 99283; Q9967; A4216

== ENCOUNTER → 2023-11-10 | Outpatient (CLI) | payer OTHER, SELFPAY ==
--- NOTE | 2023-11-10 07:34 | RAD_ITS ---
STUDY: X-RAY CHEST REASON FOR EXAM: Female, 58 years old. LEFT PLEURAL EFFUSION TECHNIQUE: PA and lateral views of the chest. COMPARISON: Comparison is made with prior study dated November 02, 2023. FINDINGS: Persistent infiltration and volume loss in the left upper lobe. Small left pleural effusion. Correlation with a CT scan to rule out possible left bronchial lesion is recommended. Stable granuloma in the right midlung. Normal size heart. Normal mediastinum and bárbara. Normal visualized pulmonary arteries. There is atherosclerotic tortuosity of the aortic arch and descending thoracic aorta. Normal visualized thoracic spine. Normal visualized ribs, clavicles, and shoulders. There is no demonstrated abnormality of the visualized soft tissue structures of the upper abdomen. RAD/Chest PA and Lateral IMPRESSION: Volume loss in the left upper lobe with infiltration and blunting of the left costo phrenic angle. Endobronchial obstructive lesion should be ruled out. Correlation with CT scan is recommended. Electronically Signed: Mark Bhat MD at 8:07 EDT ,
== END | disposition home or self-care (01) ==
LOC: RAD 07:31
PROVIDERS: PCP Family Medicine; Referring Provider Family Medicine; Visit Provider Family Medicine
DX: J90 Pleural effusion, not elsewhere classified (principal)
CPT/HCPCS: 71046

== ENCOUNTER → 2024-02-26 | Outpatient (CLI) | payer OTHER, SELFPAY ==
[2024-03-03 08:13] LABS: Age Gdln ACOG Testing 30-65 (.); HPV APTIMA, High Risk Negative (Negative)
[2024-03-04 10:09] LABS: HPV Reflexed? YES, CHARGE PATIENT
== END | disposition home or self-care (01) ==
PROVIDERS: PCP Family Medicine; Referring Provider Family Medicine; Visit Provider Family Medicine
DX: Z12.4 Encounter for screening for malignant neoplasm of cervix (principal)
CPT/HCPCS: 87624; 88175; G0145

== ENCOUNTER → 2024-04-14 | Outpatient (CLI) | payer OTHER, SELFPAY | END | disposition home or self-care (01) | LOC: OPBI 07:57 | PROVIDERS: PCP Family Medicine; Referring Provider Family Medicine; Visit Provider Family Medicine | DX: Z12.31 Encounter for screening mammogram for malignant neoplasm of breast (principal) | CPT/HCPCS: 77063; 77067 ==

== ENCOUNTER → 2024-07-07 | Outpatient (CLI) | payer OTHER, SELFPAY ==
--- NOTE | 2024-07-07 08:04 | ART_ITS ---
Reason For Study Reason For Study: S/P Rt SFA Stent Procedure A bilateral lower extremity continuous wave Doppler with analog waveform analysis and ankle brachial indexes. Left Segmental Pressures Left brachial= 149mmHg. Left posterior tibial artery = 130mmHg. Left dorsalis pedis artery = 126mmHg. Left digit = 70 mmHg. The left dorsalis pedis waveforms are triphasic. The left posterior tibial artery waveforms are triphasic. Right Segmental Pressures Right brachial= 159mmHg. Right posterior tibial artery = 146mmHg. Right dorsalis pedis artery = 145mmHg. Right digit = 110 mmHg. The right dorsalis pedis waveforms are triphasic. The right posterior tibial artery waveforms are triphasic. Indices The right ankle brachial index by the dorsalis pedis is 0.91. The right ankle brachial index by the posterior tibial artery is 0.92. The right digital-brachial index is 0.69. The left ankle brachial index by the dorsalis pedis is 0.79. The left ankle brachial index by the posterior tibial artery is 0.82. The left digital-brachial index is 0.44. VL/Ankle Brachial Index Interpretation Summary Right STEFANO _, normal. The left resting ankle-brachial index appears mildly abnor mal. Ordering Physician: Fernando Coulter Referring Physician: Sarah South MD Performed By: David Lal RVT and Student
--- NOTE | 2024-07-07 08:04 | ADU_ITS ---
Reason For Study Reason For Study: S/P Rt SFA Stent Right Velocities Left Velocities Ext. Iliac Artery, dist = 182.5 cm./sec. Ext Iliac Artery, dist = 127.9 cm./sec. Common Femoral Artery, mid = 189.4 cm./sec. Common Femoral Artery, mid = 118.3 cm./sec. Supf Femoral Artery, prox = 183.0 cm./sec. Supf. Femoral Artery, prox = 140.8 cm./sec. SFA Pre Stent, 54.0 cm/s. Supf. Femoral Artery, mid = 117.3 cm./sec. SFA Anastomosis, 353.5 cm/s. SFA Dist, Pre Stenosis, 140.8 cm/s. SFA Mid Stent, 100.8 cm/s. SFA Dist, At Stenosis,368.5 cm/s. SFA Dist Stent, 108.5 cm/s. SFA Dist, Post Stenosis,164.9 cm/s. SFA Dist Anastomosis, 86.9 cm/s. Profunda Femoral Artery = 101.6 cm./sec. Profunda Femoral Artery = 124.8 cm./sec. Popliteal Artery, mid = 93.0 cm./sec. Popliteal Artery, mid = 56.0 cm./sec. Post. Tibial Artery, prox = 61.3 cm./sec. Post. Tibial Artery, prox = 68.3 cm./sec. Post Tibial Artery, mid = 57.6 cm./sec. Post. Tibial Artery, mid = 62.1 cm./sec. Post Tibial Artery, dist. = 73.6 cm./sec. Post. Tibial Artery, dist = 38.8 cm./sec. Peroneal Artery, prox = 31.8 cm./sec. Peroneal Artery, prox = 65.8 cm./sec. Peroneal Artery, mid = 35.5 cm./sec. Peroneal Artery, mid = 53.5 cm./sec. Peroneal Artery,dist. = 28.1 cm./sec. Peroneal Artery,dist = 51.1 cm./sec. Ant.Tibial Artery, prox = 63.7 cm./sec. Ant. Tibial Artery, prox = 85.5 cm./sec. Ant Tibial Artery, mid = 39.2 cm./sec. Ant. Tibial Artery, mid = 68.3 cm./sec. Ant. Tibial Artery, distal = 47.8 cm./sec. Ant. Tibial Artery, dist = 65.8 cm./sec. Focal stenosis noted in left distal SFA. Stent noted in right mid to distal SFA. Procedure Exam performed in department. VL/US Art Duplex Bilat Lower Ext Interpretation Summary Bilateral femoral stenosis with right proximal to stent and left mid femoral. Ordering Physician: Fernando Coulter Referring Physician: MD Fernando Coulter Performed By: David Lal RVT and Student
== END | disposition home or self-care (01) ==
PROVIDERS: PCP Family Medicine; Referring Provider Surgery Vascular Surgery; Visit Provider Surgery Vascular Surgery
DX: Z48.812 Encounter for surgical aftercare following surgery on the circulatory system (principal); I70.213 Atherosclerosis of native arteries of extremities with intermittent claudication, bilateral legs; I77.1 Stricture of artery; F17.200 Nicotine dependence, unspecified, uncomplicated
CPT/HCPCS: 93922; 93925

== ENCOUNTER → 2025-04-18 | Outpatient (CLI) | payer OTHER, SELFPAY ==
--- NOTE | 2025-04-18 08:42 | BI_ITS ---
EXAM: SCRN MAMM (CAD)W/ROXI BILAT DATE: 04/18/2025 CLINICAL HISTORY: F, Age 59 y/o , SCREENING TECHNIQUE: Procedure Code: [id number] Modality: MG Procedure: SCRN MAMM (CAD)W/ROXI BILAT COMPARISON: Prior exam(s) were compared FINDINGS: TISSUE DENSITY: The breasts are heterogeneously dense, which may obscure small masses. Bilateral Breast Mammographic Findings: No significant masses, calcifications or other abnormalities are identified. BI/SCRN MAMM (CAD)W/ROXI BILAT IMPRESSION: No mammographic evidence of malignancy. OVERALL FINAL ASSESSMENT BI-RADS 1: NEGATIVE. RECOMMENDATION: Routine annual follow-up in 1 Year Additional Recommendation none A letter with findings and recommendations will be mailed to the patient. Reading Location: [id number]
== END | disposition home or self-care (01) ==
LOC: OPBI 08:41
PROVIDERS: PCP Family Medicine; Referring Provider Family Medicine; Visit Provider Family Medicine
DX: Z12.31 Encounter for screening mammogram for malignant neoplasm of breast (principal)
CPT/HCPCS: 77063; 77067